=== PATIENT | female | born 2000 ===

== ENCOUNTER 2020-12-28 09:19 | Outpatient (REF) | payer BC, SELFPAY ==
[2020-12-28 11:11] LABS: Hemoglobin 13.4 g/dl (12.0-16.0); Mean Corpuscular HGB Conc 33.5 g/dl (31.0-35.0); Mean Corpuscular Hemoglobin 28.3 pg (27.0-33.0); Mean Corpuscular Volume 84.4 fL (80-98); Mean Platelet Volume 9.4 fL (9.4-12.3); Platelet Count 319 X10*3/uL (160-400); Red Blood Count 4.74 X10*6/uL (4.20-5.50); Red Cell Distribution Width 13.2 % (11.0-16.0); White Blood Count 5.8 X10*3/uL (4.8-10.8)
[2020-12-28 11:51] LABS: HCG Quantitative < 2 mIU/mL; TSH reflex Free T4 0.82 uIU/mL (0.32-4.0)
[2020-12-28 14:25] LABS: Appearance Urine CLOUDY; Color Urine YELLOW; Glucose Urine UA NEG (NEG); Leukocyte Esterase Urine NEG (NEG); Nitrite Urine NEG (NEG); Specific Gravity - Urine 1.015 (1.005-1.025); Urine Blood NEG (NEG); Urine Ketones NEG (NEG); Urine Protein NEG (NEG-TRACE)
[2020-12-28 15:59] LABS: CT PCR NOT DETECTED (Not Detect.); NG PCR NOT DETECTED (Not Detect.)
[2020-12-31 10:34] LABS: Prolactin 7.2
[2020-12-31 10:35] LABS: DHEA Sulfate 136
== END 2020-12-28 09:20 | disposition home or self-care (01) ==
LOC: HO.LAB 09:19
PROVIDERS: Visit Provider Obstetrics & Gynecology
DX: Z01.411 Encounter for gynecological examination (general) (routine) with abnormal findings (principal); Z11.3 Encounter for screening for infections with a predominantly sexual mode of transmission; R10.2 Pelvic and perineal pain; N93.9 Abnormal uterine and vaginal bleeding, unspecified; E28.8 Other ovarian dysfunction
CPT/HCPCS: 36415; 81003; 82627; 83498; 84146; 84402; 84403; 84443; 84702; 85027; 87491; 87591; 88142

== ENCOUNTER 2021-01-14 12:59 | Outpatient (REF) | payer BC, SELFPAY ==
--- NOTE | ~2021-01-14 | US_ITS ---
EXAMINATION: US PELVIC AND TRANSVAGINAL CLINICAL INFORMATION: Medial pain. Endometriosis. LMP 2 weeks ago. COMPARISON: None. TECHNIQUE: Ultrasound of the pelvis is performed using both transabdominal and transvaginal transducers along with Doppler. Transvaginal imaging is performed due to inadequate visualization transabdominally. FINDINGS: Uterus: The uterus is anteverted and measures 7.5 x 2.7 x 4.6 cm. There appears to be smooth indentation of the fundal endometrial canal, which could indicate arcuate uterus. The double wall endometrial thickness is 0.9 mm. The uterus is smooth in contour and has normal myometrial echogenicity. No visible fibroid. Adnexa: Both ovaries are visualized. There is normal color flow to the adnexa. There is no ovarian torsion. Small amount of pelvic free fluid. Probable right-sided corpus luteum measuring up to 2.1 cm. Right ovary measures 3.4 x 2.6 x 2 cm. Right ovarian volume of 9.3 mL. Left ovary measures 4.1 x 1.5 x 1.4 cm. Left ovarian volume of 4.5 mL. US/US pelvic and transvaginal IMPRESSION: 1. Possible arcuate uterus. No myometrial lesion. Unremarkable endometrium. 2. Probable right ovarian corpus luteum measuring 2.1 cm. Unremarkable left ovary. 3. Small amount of pelvic free fluid.
== END 2021-01-14 13:00 | disposition home or self-care (01) ==
LOC: HO.US 12:59
PROVIDERS: Visit Provider Obstetrics & Gynecology
DX: R10.2 Pelvic and perineal pain (principal)
CPT/HCPCS: 76830; 76856

== ENCOUNTER → 2021-01-28 08:59 | Outpatient (BNVA) | payer BC, SELFPAY | PROVIDERS: Visit Provider Obstetrics & Gynecology ==

== ENCOUNTER 2021-06-03 13:27 | Outpatient (REF) | payer BC, SELFPAY ==
--- NOTE | ~2021-06-03 | US_ITS ---
EXAMINATION: US PELVIS CLINICAL INFORMATION: Follow-up ovarian cyst COMPARISON: Previous pelvic ultrasound January 2021 TECHNIQUE: Ultrasound of the pelvis is performed using both transabdominal and transvaginal transducers along with Doppler. Transvaginal imaging is performed due to inadequate visualization transabdominally. FINDINGS: The uterus is anteverted and measures 7.4 x 2.5 x 5.2 cm in dimension. No focal uterine lesion is seen. Endometrial thickness is normal measuring 0.3 cm. The ovaries are normal-appearing. The right ovary measures 3.7 x 1.6 x 1.4 cm. The left ovary measures 3.2 x 1.3 x 1.9 cm. The previously identified 2 cm complex right ovarian cyst on June 2021 exam is no longer seen. There is no fluid in the pelvis. US/US pelvic and transvaginal IMPRESSION: Normal pelvic ultrasound.
== END 2021-06-03 13:28 | disposition home or self-care (01) ==
LOC: HO.US 13:27
PROVIDERS: Visit Provider Obstetrics & Gynecology
DX: N83.299 Other ovarian cyst, unspecified side (principal)
CPT/HCPCS: 76830; 76856

== ENCOUNTER → 2021-06-10 10:38 | Outpatient (BNVA) | payer BC, SELFPAY | PROVIDERS: Visit Provider Obstetrics & Gynecology ==

== ENCOUNTER 2022-02-25 17:04 | Emergency (ER) | payer BC, SELFPAY ==
--- NOTE | ~2022-02-25 | CT_ITS ---
EXAMINATION: CT ABDOMEN AND PELVIS WITH CONTRAST CLINICAL INFORMATION: Pain of right lower quadrant. COMPARISON: Pelvic ultrasound from 06/03/2021 TECHNIQUE: Multidetector volumetric images were obtained from the superior aspect of the liver through the pubic symphysis following administration 85 mL of Omnipaque 350 intravenous contrast. Sagittal and coronal reformatted images were obtained on the technologist's workstation. Oral contrast: No This CT examination was performed using dose optimization techniques as appropriate, variously including the following: *Automated exposure control *Adjustment of mA and/or kV according to patient size (this includes techniques or standardized protocols for targeted exams where dose is matched to indication/reason for exam; i.e. extremities or head) *Use of iterative reconstruction technique DLP: 527 mGy-cm FINDINGS: LUNG BASES: Normal. No pulmonary consolidation or pleural effusion. LIVER: The liver has normal size, shape, and attenuation. No evidence of liver mass. GALLBLADDER AND BILIARY TREE: Gallbladder is without radiopaque stones, wall thickening or pericholecystic fluid. No dilated bile ducts. PANCREAS: Normal. No edema, pancreatic ductal dilatation or mass. SPLEEN: Normal. ADRENAL GLANDS: Normal. KIDNEYS AND URETERS: The kidneys, which have normal size and cortical thickness, enhance symmetrically. No perinephric edema or fluid collection. No urolithiasis or hydroureteronephrosis. BLADDER: Normal. No calculi or wall thickening. BOWEL AND PERITONEUM: Stomach is unremarkable. No dilated loops of bowel. The distal ileum is normal. The appendix is normal; it measures up to 5-6 mm diameter and there is no appendiceal wall thickening or adjacent fat stranding. No pneumoperitoneum. ABDOMINAL WALL: No abdominal wall mass or hernia. Mild edema in the subcutaneous tissues. VASCULATURE: Normal. LYMPH NODES: No pathologic sized lymph nodes in the abdomen or pelvis. No inguinal lymphadenopathy. PELVIC VISCERA: The anteflexed, anteverted uterus is normal. No adnexal mass. Small amount of simple free fluid is present within the pelvic cul-de-sac; this could be secondary to recent rupture of an ovarian follicle. There is a 1.4 cm corpus luteum of the right ovary. MUSCULOSKELETAL: No suspicious bone lesions. Chronic mild endplate irregularity and Schmorl's node of the L3 superior endplate. CT/CT abdomen pelvis w IV con IMPRESSION: * No acute imaging abnormalities in the abdomen or pelvis. No evidence of appendicitis. * Small, physiologic amount of free fluid is present in the pelvis and there is a 1.4 cm corpus luteum of the right ovary.
--- NOTE | ~2022-02-25 | US_ITS ---
EXAMINATION: US PELVIS CLINICAL INFORMATION: Right lower quadrant pain with normal CT scan but elevated white count COMPARISON:, Pelvic ultrasound 06/03/2021 CT abdomen pelvis 02/25/2022 TECHNIQUE: Ultrasound of the pelvis is performed using both transabdominal and transvaginal transducers along with Doppler. Transvaginal imaging is performed due to inadequate visualization transabdominally. FINDINGS: Uterus: The uterus is anteverted and measures 7.1 x 2.3 x 5.5 cm. The double wall endometrial thickness is 0.7 mm. The uterus is smooth in contour and has normal myometrial echogenicity. No visible fibroid. Adnexa: Both ovaries are visualized. There is normal color flow to the adnexa. There is no ovarian torsion. There is a small amount of free pelvic fluid Right ovary measures 2.9 x 2.5 x 2.8 cm for a volume of 10.6 mL and contains a thick-walled 1.8 x 1.8 x 1.7 cm cyst with a small amount of free fluid adjacent. This can be seen on yesterday's CT scan (series 3 image 72). Left ovary measures 2.8 x 1.9 x 2.1 cm for a 5.9 mL and appears normal. US/US pelvic and transvaginal IMPRESSION: No interval change when compared to yesterday's CT scan. Thick-walled right ovarian cyst with small amount of free fluid. No evidence of ovarian torsion.
[2022-02-25 17:56] VITALS: BP 111/78; PULSE 144; RESP 18; TEMP 36.8; O2SAT 100; BMI 29.2
--- NOTE | 2022-02-25 17:58 | ED.ABDPAIN ---
HPI - Abdominal Pain General Chief Complaint: Abdominal Pain <Brandee Hector CNP - Last Filed: 02/25/22 19:05> Stated Complaint: unable to keep food down, trembling, shakes <Brandee Hector CNP - Last Filed: 02/25/22 19:05> Time Seen by Provider: 02/25/22 20:31 <Brandee Hector CNP - Last Filed: 02/25/22 19:05> Source: patient <Miguel A Puri MD - Last Filed: 02/26/22 02:11> Mode of arrival: ambulatory <Miguel A Puri MD - Last Filed: 02/26/22 02:11> Limitations: no limitations <Miguel A Puri MD - Last Filed: 02/26/22 02:11> History of Present Illness HPI narrative: A 21-year-old female with a past medical history of right complex right ovarian cyst presents to the emergency department today with nausea, vomiting, fever and right lower quadrant abdominal pain. The patient states it started earlier today, and has progressively worsened to become moderate to severe at times.. The pain is made worse with any kind of movement, deep breathing, coughing and eating. There have been no relieving factors. <Miguel A Puri MD - Last Filed: 02/26/22 02:11> MD elicited complaint: abdominal pain <Miguel A Puri MD - Last Filed: 02/26/22 02:11> Onset (ago): day(s) (1) <Miguel A Puri MD - Last Filed: 02/26/22 02:11> Pain Consistency: constant <Miguel A Puri MD - Last Filed: 02/26/22 02:11> Location: RLQ <Miguel A Puri MD - Last Filed: 02/26/22 02:11> Severity: severe <Miguel A Puri MD - Last Filed: 02/26/22 02:11> Quality: cramping and aching <Miguel A Puri MD - Last Filed: 02/26/22 02:11> Radiation: none <Miguel A Puri MD - Last Filed: 02/26/22 02:11> Exacerbating factors: eating and movement <Miguel A Puri MD - Last Filed: 02/26/22 02:11> Relieving factors: nothing <Miguel A Puri MD - Last Filed: 02/26/22 02:11> Associated symptoms: nausea, vomiting and fever <Miguel A Puri MD - Last Filed: 02/26/22 02:11> Related Data Home Medications: Home Medications Medication Instructions Recorded Confirmed dextroamphetamine-amphetamine ER 1 cap PO QAM 12/28/20 10 mg 24hr capsule,extend release methylphenidate HCl 10 mg biphasic 10 mg PO QAM 12/28/20 50-50 capsule,extended release topiramate 100 mg capsule 100 mg PO DAILY 12/28/20 sprinkle,extended release 24 hr venlafaxine 37.5 mg 37.5 mg PO DAILY 12/28/20 tablet,extended release 24 hr venlafaxine 75 mg capsule,extended 75 mg PO DAILY 12/28/20 release 24 hr Previous Rx's Medication Instructions Recorded ondansetron 4 mg disintegrating 4 mg PO Q8H PRN nausea and 02/26/22 tablet vomiting #10 tabs oxycodone-acetaminophen 5 mg-325 1 - 2 tab PO Q4H PRN pain, 02/26/22 mg tablet (Endocet) moderate #10 tabs <Brandee Hector CNP - Last Filed: 02/25/22 19:05> Allergies/Adverse Reactions: Allergies Allergy/AdvReac Type Severity Reaction Status Date / Time Penicillins Allergy Unknown hives Verified 02/25/22 17:56 <Brandee Hector ORTHOPEDIC TECH - Last Filed: 02/25/22 19:05> Review of Systems Constitutional: Denies chills, Reports fever(s), Denies headache(s) and Denies weakness <Miguel A Puri MD - Last Filed: 02/26/22 02:11> Eyes: Reports no additional eye complaints <Miguel A Puri MD - Last Filed: 02/26/22 02:11> Reports system reviewed and no additional complaints, except as documented, Denies dizziness and Denies headache(s) <Miguel A Puri MD - Last Filed: 02/26/22 02:11> Cardiovascular: Reports no additional cardiovascular complaints and Denies syncope <Miguel A Puri MD - Last Filed: 02/26/22 02:11> Respiratory: Reports no additional respiratory complaints <Miguel A Puri MD - Last Filed: 02/26/22 02:11> Gastrointestinal: Reports abdominal pain, Reports GI cramping, Reports nausea and Reports vomiting <Miguel A Puri MD - Last Filed: 02/26/22 02:11> Genitourinary: Denies abnormal menses, Denies abnormal vaginal bleeding, Denies hematuria and Denies difficulty voiding <Miguel A Puri MD - Last Filed: 02/26/22 02:11> Musculoskeletal: Reports no additional musculoskeletal complaints <Miguel A Puri MD - Last Filed: 02/26/22 02:11> Skin/Breast: Reports system reviewed and no additional complaints, except as docu <Miguel A Puri MD - Last Filed: 02/26/22 02:11> Denies Abnormal speech present, Denies dizziness, Denies syncope, Denies headache(s) and Denies weakness <Miguel A Puri MD - Last Filed: 02/26/22 02:11> [facility] Past Medical History Attestation statement: The following information was validated with the patient. <Miguel A Puri MD - Last Filed: 02/26/22 02:11> Medical History: Medical History ADD (attention deficit disorder) Anxiety Endometriosis Migraine headache PTSD (post-traumatic stress disorder) <Brandee Hector CNP - Last Filed: 02/25/22 19:05> Surgical History: Surgical History [place] teeth removed <Brandee Hector CNP - Last Filed: 02/25/22 19:05> Family History Family History: Family History Maternal Grandmother Breast CA <Brandee Hector CNP - Last Filed: 02/25/22 19:05> Social History Social History: Social History Alcohol intake: never Patient Tobacco Use Status: Never used Tobacco Smoked in Last 30 Days: No Use of substances other than those prescribed or required for medical reasons: No Advance Directives: No Advance Directives Information Provided: No Patient : No <Brandee Hector CNP - Last Filed: 02/25/22 19:05> Physical Exam ED Vital Signs: Vital Signs - 24 hr 02/25/22 17:56 02/25/22 18:39 02/25/22 21:44 Temperature 98.2 F 99.5 F 99.9 F Pulse Rate 144 H 119 H 114 H Respiratory Rate 18 18 16 Blood Pressure 111/78 112/72 101/45 L Pulse Oximetry 100 100 97 Oxygen Delivery Method Room Air Room Air Room Air 02/25/22 23:37 Temperature 100.3 F Pulse Rate 110 H Respiratory Rate 16 Blood Pressure 91/53 L Pulse Oximetry 98 Oxygen Delivery Method Room Air BMI result Body Mass Index 29.2 <Brandee Hector CNP - Last Filed: 02/25/22 19:05> Vital Signs - 24 hr 02/25/22 17:56 02/25/22 18:39 02/25/22 21:44 Temperature 98.2 F 99.5 F 99.9 F Pulse Rate 144 H 119 H 114 H Respiratory Rate 18 18 16 Blood Pressure 111/78 112/72 101/45 L Pulse Oximetry 100 100 97 Oxygen Delivery Method Room Air Room Air Room Air 02/25/22 23:37 Temperature 100.3 F Pulse Rate 110 H Respiratory Rate 16 Blood Pressure 91/53 L Pulse Oximetry 98 Oxygen Delivery Method Room Air BMI result Body Mass Index 29.2 <Miguel A Puri MD - Last Filed: 02/26/22 02:11> Vital signs stable here in the emergency department except heart rate is elevated at 144 <Miguel A Puri MD - Last Filed: 02/26/22 02:11> Const General: acute distress and ill appearing; No no acute distress <Miguel A Puri MD - Last Filed: 02/26/22 02:11> Nutritional Appearance: average body habitus <Miguel A Puri MD - Last Filed: 02/26/22 02:11> Orientation/consciousness: patient oriented x3 <Miguel A Puri MD - Last Filed: 02/26/22 02:11> HENMT Head: Yes normal to inspection, Yes normocephalic and Yes atraumatic <Miguel A Puri MD - Last Filed: 02/26/22 02:11> Ears: hearing grossly normal bilaterally and external ears normal <Miguel A Puri MD - Last Filed: 02/26/22 02:11> General nose exam: Normal external nose present <Miguel A Puri MD - Last Filed: 02/26/22 02:11> Face and sinus: Yes normal facial exam <Miguel A Puri MD - Last Filed: 02/26/22 02:11> Eyes General: appearance normal, both eyes and all related structures <Miguel A Puri MD - Last Filed: 02/26/22 02:11> Conjunctivae: conjunctivae normal <Miguel A Puri MD - Last Filed: 02/26/22 02:11> Sclerae: sclerae normal <Miguel A Puri MD - Last Filed: 02/26/22 02:11> Pupils: Equal, round and reactive pupils present <Miguel A Puri MD - Last Filed: 02/26/22 02:11> EOM: EOMs intact bilaterally <Miguel A Puri MD - Last Filed: 02/26/22 02:11> Neck Neck: Yes normal visual inspection and Yes full ROM <Miguel A Puri MD - Last Filed: 02/26/22 02:11> Resp Effort & Inspection: normal respiratory effort, normal respiratory pattern, no cough and not labored <Miguel A Puri MD - Last Filed: 02/26/22 02:11> Cardio Rate: tachycardic <Miguel A Puri MD - Last Filed: 02/26/22 02:11> Rhythm: regular rhythm <Miguel A Puri MD - Last Filed: 02/26/22 02:11> GI Inspection: Yes normal to inspection, No Abdominal wall edema and No distended <Miguel A Puri MD - Last Filed: 02/26/22 02:11> Palpation (GI): Tenderness to palpation present (GI) in the RLQ <Miguel A Puri MD - Last Filed: 02/26/22 02:11> Percussion: Yes normal to percussion (Painful with percussion) <Miguel A Puri MD - Last Filed: 02/26/22 02:11> Auscultation: normal bowel sounds <Miguel A Puri MD - Last Filed: 02/26/22 02:11> General: Yes CVA tenderness <Miguel A Puri MD - Last Filed: 02/26/22 02:11> Back/Spine/Pelvis Back: CVA tenderness <Miguel A Puri MD - Last Filed: 02/26/22 02:11> Cervical Spine: normal cervical lordosis and cervical ROM normal <Miguel A Puri MD - Last Filed: 02/26/22 02:11> Skin General skin exam: no ecchymosis, no jaundice and no pallor <Miguel A Puri MD - Last Filed: 02/26/22 02:11> Neuro General: patient oriented x3 and CN's II-XI intact bilaterally <Miguel A Puri MD - Last Filed: 02/26/22 02:11> Cranial nerves: Yes Equal, round and reactive pupils present <Miguel A Puri MD - Last Filed: 02/26/22 02:11> Cognition (Neuro): normal cognition <Miguel A Puri MD - Last Filed: 02/26/22 02:11> Speech: No Abnormal speech present <Miguel A Puri MD - Last Filed: 02/26/22 02:11> Course Course Course Narrative: RME: Patient is a 21-year-old female presents to the emergency department for evaluation of nausea, vomiting, body aches, unable to tolerate PO intake since 10:00. Also c/o diffuse ABD pain, worse to the lower ABD PE: tachycardic 150's, pale, diffuse lower ABD pain upon palpation while sitting in wheelchair, no respiratory distress Plan: Tachycardic, otherwise no additional SIRS criteria no tachypnea, hypoxia, fever at this time, Spoke with charge nurse, patient to be brought directly to a bed. CBC, CMP, lipase, lactic acid, blood cultures, EKG, U/A, urine hcg. <Brandee Hector CNP - Last Filed: 02/25/22 19:05> Medications Administered Generic Name Dose Route Start Last Admin Trade Name Freq PRN Reason Stop Dose Admin Fentanyl 50 mcg 02/25/22 20:58 02/25/22 23:51 Fentanyl Citrate/Pf 100 Mcg/2 Ml Vial IVPUSH 50 mcg Q1H PRN Administration Pain, Severe (Pain Scale 7-10) Protocol Discontinued Medications Generic Name Dose Route Start Last Admin Trade Name Freq PRN Reason Stop Dose Admin Sodium Chloride 1,000 mls @ 1,000 mls/hr 02/25/22 20:36 02/25/22 22:31 Ns IV 02/25/22 21:35 Infused .Q1H ONE Infusion Cefotetan Disodium 2 gm/ 50 mls @ 100 mls/hr 02/25/22 20:36 02/25/22 21:47 Sodium Chloride IV 02/25/22 21:05 Infused ONCE ONE Infusion Sodium Chloride 1,000 mls @ 1,000 mls/hr 02/25/22 22:53 02/26/22 01:30 Ns IV 02/25/22 23:52 Infused .Q1H ONE Infusion Iohexol 100 ml 02/25/22 21:20 02/25/22 21:20 Iohexol 350 Mg/Ml 100 Ml Infus..Btl IV 02/25/22 21:21 85 ml ONCE ONE Administration Morphine Sulfate 4 mg 02/25/22 20:36 02/25/22 21:07 Morphine Sulfate 4 Mg/Ml Cartridge IVPUSH 02/25/22 20:37 Not Given ONCE ONE Protocol Ondansetron HCl 4 mg 02/25/22 20:36 02/25/22 21:07 Ondansetron Hcl 4 Mg/2 Ml Vial IVPUSH 02/25/22 20:37 4 mg ONCE ONE Administration <Brandee Hector, ORTHOPEDIC TECH - Last Filed: 02/25/22 19:05> Medications Administered Generic Name Dose Route Start Last Admin Trade Name Freq PRN Reason Stop Dose Admin Fentanyl 50 mcg 02/25/22 20:58 02/25/22 23:51 Fentanyl Citrate/Pf 100 Mcg/2 Ml Vial IVPUSH 50 mcg Q1H PRN Administration Pain, Severe (Pain Scale 7-10) Protocol Discontinued Medications Generic Name Dose Route Start Last Admin Trade Name Freq PRN Reason Stop Dose Admin Sodium Chloride 1,000 mls @ 1,000 mls/hr 02/25/22 20:36 02/25/22 22:31 Ns IV 02/25/22 21:35 Infused .Q1H ONE Infusion Cefotetan Disodium 2 gm/ 50 mls @ 100 mls/hr 02/25/22 20:36 02/25/22 21:47 Sodium Chloride IV 02/25/22 21:05 Infused ONCE ONE Infusion Sodium Chloride 1,000 mls @ 1,000 mls/hr 02/25/22 22:53 02/26/22 01:30 Ns IV 02/25/22 23:52 Infused .Q1H ONE Infusion Iohexol 100 ml 02/25/22 21:20 02/25/22 21:20 Iohexol 350 Mg/Ml 100 Ml Infus..Btl IV 02/25/22 21:21 85 ml ONCE ONE Administration Morphine Sulfate 4 mg 02/25/22 20:36 02/25/22 21:07 Morphine Sulfate 4 Mg/Ml Cartridge IVPUSH 02/25/22 20:37 Not Given ONCE ONE Protocol Ondansetron HCl 4 mg 02/25/22 20:36 02/25/22 21:07 Ondansetron Hcl 4 Mg/2 Ml Vial IVPUSH 02/25/22 20:37 4 mg ONCE ONE Administration <Miguel A Puri MD - Last Filed: 02/26/22 02:11> MDM - Abdominal Pain MDM Narrative Medical decision making narrative: 21-year-old female with abdominal pain. The patient was evaluated over several hours. She did receive several doses of IV fentanyl for her pain. She underwent a CT scan of the abdomen and ultrasound of the pelvis both of which were unremarkable without any acute findings. Laboratory studies [place] [address] and an initial lactate of 3.2. At this point, there does not appear to be a clear etiology of her abdominal pain. Upon re-evaluation at 2:00 a.m., the patient is sleeping, and is comfortable. Would like to go home at this time. She will be discharged home with follow-up to her primary care doctor on Monday, as well as pain medication and nausea medication. She is instructed to return for any additional complaints. <Miguel A Puri MD - Last Filed: 02/26/22 02:11> Differential Diagnosis Differential diagnosis: Likely abdominal pain <Miguel A Puri MD - Last Filed: 02/26/22 02:11> Lab Data Attestation: I reviewed the patient's lab results. <Miguel A Puri MD - Last Filed: 02/26/22 02:11> Lab results narrative: Of note is a white count of 16 and hematocrit of 49.6. <Miguel A uPri MD - Last Filed: 02/26/22 02:11> Result diagrams: : 02/25/22 19:33 02/25/22 19:33 <Brandee Hector CNP - Last Filed: 02/25/22 19:05> Labs: Lab Results 02/25/22 02/25/22 02/25/22 Range/Units 19:33 19:33 19:33 WBC 16.1 H (4.8-10.8) X10*3/uL RBC 5.79 H (4.20-5.50) X10*6/uL Hgb 16.8 H (12.0-16.0) g/dl Hct 49.6 H (37.0-47.0) % MCV 85.7 (80.0-98.0) fL MCH 29.0 (27.0-33.0) pg MCHC 33.9 (31.0-35.0) g/dl RDW 12.0 (11.0-16.0) % Plt Count 261 (160-400) X10*3/uL MPV 9.6 (9.4-12.3) fL Immature Gran % (Auto) 0.4 (0.0-0.4) % Neut % (Auto) 93.2 H (45-73) % Lymph % (Auto) 2.1 L (20-40) % [place] % (Auto) 4.0 (2-11) % Eos % (Auto) 0.1 (0-4) % Baso % (Auto) 0.2 (0-2) % Lymph # (Auto) 0.3 L (1.2-4.9) X10*3/uL [place] # (Auto) 0.6 (0.1-1.2) X10*3/uL Eos # (Auto) 0.0 (0.0-0.4) X10*3/uL Baso # (Auto) 0.0 (0.0-0.2) X10*3/uL Abs Immat Gran (auto) 0.07 H (0.00-0.03) X10*3/uL Absolute Neuts (auto) 15.0 H (2.0-8.3) x10*3/uL Absolute Nucleated RBC 0.000 (0.0-0.012) X10*3/uL Nucleated RBC % (auto) 0.0 (0.0-0.2) /100WBC Smear Tech's Comments VERIFIED Sodium 139 (135-145) mmol/L Potassium 4.9 (3.3-5.1) mmol/L Chloride 104 (96-108) mmol/L Carbon Dioxide 21 L (22-29) mmol/L Anion Gap 19 (12-20) BUN 13 (9-16) mg/dL Creatinine 0.83 (0.5-1.4) mg/dL Estim Creat Clear Calc 102.9 Estimated GFR > 60 Random Glucose 91 (60-115) mg/dL Lactic Acid 3.2 H* (0.5-2.0) mmol/L Lactic Acid F/U @ 2Hr (0.5-2.0) mmol/L Calcium 9.6 (8.4-10.2) mg/dL Total Bilirubin 1.0 (0.0-1.0) mg/dL AST 17 (5-31) U/L ALT 14 (0-31) U/L Alkaline Phosphatase 73 (39-117) U/L Total Protein 7.4 (6.5-8.0) g/dL Albumin 4.7 (3.5-5.0) g/dL Lipase 11 (8-78) U/L COVID-19 (DORON) (Negative) COVID-19 Clin Com Influenza Type A (FACUNDO) (Negative) Influenza Type B (FACUNDO) (Negative) Influenza A & B Note 02/25/22 02/25/22 02/25/22 Range/Units 19:33 19:33 21:54 WBC (4.8-10.8) X10*3/uL RBC (4.20-5.50) X10*6/uL Hgb (12.0-16.0) g/dl Hct (37.0-47.0) % MCV (80.0-98.0) fL MCH (27.0-33.0) pg MCHC (31.0-35.0) g/dl RDW (11.0-16.0) % Plt Count (160-400) X10*3/uL MPV (9.4-12.3) fL Immature Gran % (Auto) (0.0-0.4) % Neut % (Auto) (45-73) % Lymph % (Auto) (20-40) % [place] % (Auto) (2-11) % Eos % (Auto) (0-4) % Baso % (Auto) (0-2) % Lymph # (Auto) (1.2-4.9) X10*3/uL [place] # (Auto) (0.1-1.2) X10*3/uL Eos # (Auto) (0.0-0.4) X10*3/uL Baso # (Auto) (0.0-0.2) X10*3/uL Abs Immat Gran (auto) (0.00-0.03) X10*3/uL Absolute Neuts (auto) (2.0-8.3) x10*3/uL Absolute Nucleated RBC (0.0-0.012) X10*3/uL Nucleated RBC % (auto) (0.0-0.2) /100WBC Smear Tech's Comments Sodium (135-145) mmol/L Potassium (3.3-5.1) mmol/L Chloride (96-108) mmol/L Carbon Dioxide (22-29) mmol/L Anion Gap (12-20) BUN (9-16) mg/dL Creatinine (0.5-1.4) mg/dL Estim Creat Clear Calc Estimated GFR Random Glucose (60-115) mg/dL Lactic Acid (0.5-2.0) mmol/L Lactic Acid F/U @ 2Hr 2.0 (0.5-2.0) mmol/L Calcium (8.4-10.2) mg/dL Total Bilirubin (0.0-1.0) mg/dL AST (5-31) U/L ALT (0-31) U/L Alkaline Phosphatase (39-117) U/L Total Protein (6.5-8.0) g/dL Albumin (3.5-5.0) g/dL Lipase (8-78) U/L COVID-19 (DORON) Negative (Negative) COVID-19 Clin Com See Note Influenza Type A (FACUNDO) Negative (Negative) Influenza Type B (FACUNDO) Negative (Negative) Influenza A & B Note See Note <Brandee Hector, TRISTAN - Last Filed: 02/25/22 19:05> Lab Results 02/25/22 02/25/22 02/25/22 Range/Units 19:33 19:33 19:33 WBC 16.1 H (4.8-10.8) X10*3/uL RBC 5.79 H (4.20-5.50) X10*6/uL Hgb 16.8 H (12.0-16.0) g/dl Hct 49.6 H (37.0-47.0) % MCV 85.7 (80.0-98.0) fL MCH 29.0 (27.0-33.0) pg MCHC 33.9 (31.0-35.0) g/dl RDW 12.0 (11.0-16.0) % Plt Count 261 (160-400) X10*3/uL MPV 9.6 (9.4-12.3) fL Immature Gran % (Auto) 0.4 (0.0-0.4) % Neut % (Auto) 93.2 H (45-73) % Lymph % (Auto) 2.1 L (20-40) % [place] % (Auto) 4.0 (2-11) % Eos % (Auto) 0.1 (0-4) % Baso % (Auto) 0.2 (0-2) % Lymph # (Auto) 0.3 L (1.2-4.9) X10*3/uL [place] # (Auto) 0.6 (0.1-1.2) X10*3/uL Eos # (Auto) 0.0 (0.0-0.4) X10*3/uL Baso # (Auto) 0.0 (0.0-0.2) X10*3/uL Abs Immat Gran (auto) 0.07 H (0.00-0.03) X10*3/uL Absolute Neuts (auto) 15.0 H (2.0-8.3) x10*3/uL Absolute Nucleated RBC 0.000 (0.0-0.012) X10*3/uL Nucleated RBC % (auto) 0.0 (0.0-0.2) /100WBC Smear Tech's Comments VERIFIED Sodium 139 (135-145) mmol/L Potassium 4.9 (3.3-5.1) mmol/L Chloride 104 (96-108) mmol/L Carbon Dioxide 21 L (22-29) mmol/L Anion Gap 19 (12-20) BUN 13 (9-16) mg/dL Creatinine 0.83 (0.5-1.4) mg/dL Estim Creat Clear Calc 102.9 Estimated GFR > 60 Random Glucose 91 (60-115) mg/dL Lactic Acid 3.2 H* (0.5-2.0) mmol/L Lactic Acid F/U @ 2Hr (0.5-2.0) mmol/L Calcium 9.6 (8.4-10.2) mg/dL Total Bilirubin 1.0 (0.0-1.0) mg/dL AST 17 (5-31) U/L ALT 14 (0-31) U/L Alkaline Phosphatase 73 (39-117) U/L Total Protein 7.4 (6.5-8.0) g/dL Albumin 4.7 (3.5-5.0) g/dL Lipase 11 (8-78) U/L COVID-19 (DORON) (Negative) COVID-19 Clin Com Influenza Type A (FACUNDO) (Negative) Influenza Type B (FACUNDO) (Negative) Influenza A & B Note 02/25/22 02/25/22 02/25/22 Range/Units 19:33 19:33 21:54 WBC (4.8-10.8) X10*3/uL RBC (4.20-5.50) X10*6/uL Hgb (12.0-16.0) g/dl Hct (37.0-47.0) % MCV (80.0-98.0) fL MCH (27.0-33.0) pg MCHC (31.0-35.0) g/dl RDW (11.0-16.0) % Plt Count (160-400) X10*3/uL MPV (9.4-12.3) fL Immature Gran % (Auto) (0.0-0.4) % Neut % (Auto) (45-73) % Lymph % (Auto) (20-40) % [place] % (Auto) (2-11) % Eos % (Auto) (0-4) % Baso % (Auto) (0-2) % Lymph # (Auto) (1.2-4.9) X10*3/uL [place] # (Auto) (0.1-1.2) X10*3/uL Eos # (Auto) (0.0-0.4) X10*3/uL Baso # (Auto) (0.0-0.2) X10*3/uL Abs Immat Gran (auto) (0.00-0.03) X10*3/uL Absolute Neuts (auto) (2.0-8.3) x10*3/uL Absolute Nucleated RBC (0.0-0.012) X10*3/uL Nucleated RBC % (auto) (0.0-0.2) /100WBC Smear Tech's Comments Sodium (135-145) mmol/L Potassium (3.3-5.1) mmol/L Chloride (96-108) mmol/L Carbon Dioxide (22-29) mmol/L Anion Gap (12-20) BUN (9-16) mg/dL Creatinine (0.5-1.4) mg/dL Estim Creat Clear Calc Estimated GFR Random Glucose (60-115) mg/dL Lactic Acid (0.5-2.0) mmol/L Lactic Acid F/U @ 2Hr 2.0 (0.5-2.0) mmol/L Calcium (8.4-10.2) mg/dL Total Bilirubin (0.0-1.0) mg/dL AST (5-31) U/L ALT (0-31) U/L Alkaline Phosphatase (39-117) U/L Total Protein (6.5-8.0) g/dL Albumin (3.5-5.0) g/dL Lipase (8-78) U/L COVID-19 (DORON) Negative (Negative) COVID-19 Clin Com See Note Influenza Type A (FACUNDO) Negative (Negative) Influenza Type B (FACUNDO) Negative (Negative) Influenza A & B Note See Note <Miguel A Puri MD - Last Filed: 02/26/22 02:11> Imaging Data Ultrasound pelvis: Radiologist's impression: FINDINGS: Uterus: The uterus is anteverted and measures 7.1 x 2.3 x 5.5 cm. The double wall endometrial thickness is 0.7 mm.? The uterus is smooth in contour and has normal myometrial echogenicity. ? No visible fibroid. Adnexa: Both ovaries are visualized. There is normal color flow to the adnexa. There is no ovarian torsion.? There is a small amount of free pelvic fluid Right ovary measures 2.9 x 2.5 x 2.8 cm for a volume of 10.6 mL and contains a thick-walled 1.8 x 1.8 x 1.7 cm cyst with a small amount of free fluid adjacent. This can be seen on yesterday's CT scan (series 3 image 72). Left ovary measures 2.8 x 1.9 x 2.1 cm for a 5.9 mL and appears normal <Miguel A Puri MD - Last Filed: 02/26/22 02:11> CT scan - abdomen: Radiologist's impression: IMPRESSION: *? No acute imaging abnormalities in the abdomen or pelvis. No evidence of appendicitis. *? Small, physiologic amount of free fluid is present in the pelvis and there is a 1.4 cm corpus luteum of the right ovary <Miguel A Puri MD - Last Filed: 02/26/22 02:11> Discharge Plan Discharge Clinical Impression: Abdominal pain Qualifiers: Abdominal location: right lower quadrant Qualified Code(s): R10.31 - Right lower quadrant pain <Brandee Hector CNP - Last Filed: 02/25/22 19:05> Patient Disposition: Home, Self-Care <Brandee Hector CNP - Last Filed: 02/25/22 19:05> Instructions: Abdominal Pain (ED) <Brandee Hector CNP - Last Filed: 02/25/22 19:05> Prescriptions: New oxycodone-acetaminophen [Endocet] 5-325 mg tablet 1 - 2 tab PO Q4H PRN (Reason: pain, moderate) Qty: 10 0RF Rx Instructions: Partial Fill upon patient request. ondansetron 4 mg tablet,disintegrating 4 mg PO Q8H PRN (Reason: nausea and vomiting) Qty: 10 0RF No Action methylphenidate HCl 10 mg capsule,ER biphasic 50-50 10 mg PO QAM venlafaxine 75 mg capsule,extended release 24hr 75 mg PO DAILY dextroamphetamine-amphetamine 10 mg capsule,extended release 24hr 1 cap PO QAM venlafaxine 37.5 mg tablet extended release 24hr 37.5 mg PO DAILY topiramate 100 mg cap,sprinkle,ER 24hr dose pack 100 mg PO DAILY <Brandee Hector CNP - Last Filed: 02/25/22 19:05> Stand Alone Forms: Work/School Release <Brandee Hector CNP - Last Filed: 02/25/22 19:05>
--- NOTE | 2022-02-25 18:02 | ECG_ITS ---
Test Reason : ABD PAIN Blood Pressure : / mmHG Vent. Rate : 125 BPM Atrial Rate : 125 BPM P-R Int : 132 ms QRS Dur : 070 ms QT Int : 282 ms P-R-T Axes : 062 042 051 degrees QTc Int : 407 ms Sinus tachycardia RSR' or QR pattern in V1 suggests right ventricular conduction delay Otherwise normal ECG No previous ECGs available Referred By: Brandee Hector Electronically Signed By:LEEANN CHAPA MD
[2022-02-25 18:39] VITALS: BP 112/72; PULSE 119; RESP 18; TEMP 37.5; O2SAT 100
--- NOTE | 2022-02-25 18:57 | PC.NURSE ---
this pct notice pt heart rate was high while taking ekg ,pt was hooked up to director of cardiac rehabilitation .
[2022-02-25 19:43] LABS: Basophils Percent Auto 0.2 % (0-2); Eosinophils Percent Auto 0.1 % (0-4); Hematocrit 49.6 % (37.0-47.0); Hemoglobin 16.8 g/dl (12.0-16.0); Imm Gran Abs Auto 0.07 X10*3/uL (0.00-0.03); Imm Gran Pct Auto 0.4 % (0.0-0.4); Lymphocytes Absolute Auto 0.3 X10*3/uL (1.2-4.9); Lymphocytes Percent Auto 2.1 % (20-40); MANUAL DIFF FLAG SCAN; Mean Corpuscular HGB Conc 33.9 g/dl (31.0-35.0); Mean Corpuscular Volume 85.7 fL (80.0-98.0); Mean Platelet Volume 9.6 fL (9.4-12.3); Monocytes Absolute Auto 0.6 X10*3/uL (0.1-1.2); Neutrophils Percent Auto 93.2 % (45-73); Platelet Count 261 X10*3/uL (160-400); Red Blood Count 5.79 X10*6/uL (4.20-5.50); SCAN SMEAR FLAG 1; White Blood Count 16.1 X10*3/uL (4.8-10.8)
[2022-02-25 19:56] LABS: COVID-19 Test Negative (Negative); IDNOW Serial# 16C4AD1C
[2022-02-25 19:58] LABS: IDNOW Serial# BCCEAD1C; Influenza A Negative (Negative); Influenza B2 Negative (Negative)
[2022-02-25 20:05] LABS: Alanine Aminotransferase 14 U/L (0-31); Albumin Level 4.7 g/dL (3.5-5.0); Alkaline Phosphatase 73 U/L (39-117); Anion Gap 19 (12-20); Aspartate Amino Transferase 17 U/L (5-31); Blood Urea Nitrogen 13 mg/dL (9-16); Calcium 9.6 mg/dL (8.4-10.2); Carbon Dioxide 21 mmol/L (22-29); Chloride 104 mmol/L (96-108); Creatinine Clr Calc Pharmacy 102.9; Estimated Glomerular Filt Rate > 60; Glucose Random 91 mg/dL (60-115); Lipase 11 U/L (8-78); Potassium 4.9 mmol/L (3.3-5.1); Sodium 139 mmol/L (135-145); Total Protein 7.4 g/dL (6.5-8.0)
[2022-02-25 20:07] LABS: Lactic Acid 3.2 mmol/L (0.5-2.0)
[2022-02-25 20:17] LABS: SLIDE REVIEW VERIFIED
[2022-02-25] MEDS: fentaNYL citrate/PF 100 MCG/2 ML VIAL 50 MCG IVPUSH ×2 (21:06→23:51)
[2022-02-25] MEDS: ondansetron HCL 4 MG/2 ML VIAL IVPUSH (21:07)
[2022-02-25] MEDS: cefoTEtan disodium 2 GM in 0.9 % Sodium Chloride 50 ML IV (21:10)
[2022-02-25] MEDS: 0.9 % Sodium Chloride 1,000 ML 1000 ML IV ×2 (21:13→23:51)
[2022-02-25] MEDS: iohexoL 350 MG/ML 100 ML INFUS..BTL IV (21:20)
[2022-02-25 21:38] LABS: Reflex Lactate? Lactic Acid Added
[2022-02-25 21:44] VITALS: BP 101/45; PULSE 114; RESP 16; TEMP 37.7; O2SAT 97
[2022-02-25 23:37] VITALS: BP 91/53; PULSE 110; RESP 16; TEMP 37.9; O2SAT 98
--- NOTE | 2022-02-26 00:06 | PC.NURSE ---
PATIENT SAID SHE NOT ABLE TO GIVE URINE SAMPLE ,RUTH ANN NATH IS AWARE .
[2022-02-26 02:00] VITALS: BP 96/47; PULSE 100; RESP 20; TEMP 37.9; O2SAT 97
== END 2022-02-26 02:32 | disposition home or self-care (01) ==
PROVIDERS: Nurse Practitioner Family; Emergency Provider Emergency Medicine
DX: R10.31 Right lower quadrant pain (principal); R00.0 Tachycardia, unspecified; N83.11 Corpus luteum cyst of right ovary; Z20.822 Contact with and (suspected) exposure to COVID-19
CPT/HCPCS: 74177; 76830; 76856; 80053; 83605; 83690; 85025; 87040; 87502; 87635; 93005; 96361; 96365; 96375; 99285; J2405; J3010; Q9967

== ENCOUNTER 2022-08-12 12:23 | Emergency (ER) | payer BC, SELFPAY ==
[2022-08-12] VITALS (10 sets, daily range): BP systolic 106–149; BP diastolic 58–86; PULSE 77–114; RESP 8–18; TEMP 36.6–36.9; O2SAT 95–100; BMI 30.1
--- NOTE | ~2022-08-12 | XR_ITS ---
EXAMINATION: XR WRIST, RIGHT XR HAND, RIGHT CLINICAL INFORMATION: Fall with deformity COMPARISON: None available. TECHNIQUE: PA, lateral, and oblique views of the right wrist and PA, lateral, and oblique views of the right hand FINDINGS: RIGHT WRIST: There is a comminuted intra-articular angulated fracture of the distal radius with dorsal angulation of the radiocarpal joint. There is also a displaced ulnar styloid fracture present. RIGHT HAND: There is limited evaluation of the hand due to positioning and flexion of the metacarpal phalangeal joints and interphalangeal joints. No acute fracture or dislocation of the right hand is identified. The right hand joint spaces appear maintained. XR/XR hand wrist RT IMPRESSION: Comminuted intra-articular angulated fracture of the distal right radius. Displaced right ulnar styloid fracture.
--- NOTE | ~2022-08-12 | XR_ITS ---
EXAMINATION: XR WRIST, RIGHT CLINICAL INFORMATION: Postreduction. COMPARISON: Right hand and wrist 08/12/2022 at 12:54 PM. TECHNIQUE: PA, lateral, and oblique views of the right wrist. FINDINGS: There is a comminuted distal radial and ulnar styloid process fracture stabilized with right wrist in a hard cast. The fracture fragments are in satisfactory alignment. XR/XR wrist RT 2V IMPRESSION: Status post reduction distal radial and ulnar styloid process fracture with right wrist in a hard cast.
--- NOTE | 2022-08-12 12:41 | ED_ITS ---
HPI - Extremity Injury (Upper) General Chief Complaint: Extremity Injury, Upper <EMELY Lopez - Last Filed: 08/12/22 12:45> Stated Complaint: fell on L arm <EMELY Lopez - Last Filed: 08/12/22 12:45> Time Seen by Provider: 08/12/22 12:49 <EMELY Lopez - Last Filed: 08/12/22 12:45> Source: patient <Denia Bryson NP - Last Filed: 08/12/22 16:10> Mode of arrival: ambulatory <Denia Bryson NP - Last Filed: 08/12/22 16:10> Limitations: no limitations <Denia Bryson NP - Last Filed: 08/12/22 16:10> History of Present Illness HPI narrative: Patient is a 22-year-old [id number] female presenting with right wrist deformity and pain after falling onto outstretched hands while roller- skating prior to arrival. She is able to move all fingers on right hand, does endorse tingling to fingers of right hand. She denies hitting her head during fall. <Denia Bryson NP - Last Filed: 08/12/22 16:10> Related Data Home Medications: Home Medications Medication Instructions Recorded Confirmed dextroamphetamine-amphetamine ER 1 cap PO QAM 12/28/20 10 mg 24hr capsule,extend release methylphenidate HCl 10 mg biphasic 10 mg PO QAM 12/28/20 50-50 capsule,extended release topiramate 100 mg capsule 100 mg PO DAILY 12/28/20 sprinkle,extended release 24 hr venlafaxine 37.5 mg 37.5 mg PO DAILY 12/28/20 tablet,extended release 24 hr venlafaxine 75 mg capsule,extended 75 mg PO DAILY 12/28/20 release 24 hr Previous Rx's Medication Instructions Recorded ondansetron 4 mg disintegrating 4 mg PO Q8H PRN nausea and 02/26/22 tablet vomiting #10 tabs oxycodone-acetaminophen 5 mg-325 1 - 2 tab PO Q4H PRN pain, 02/26/22 mg tablet (Endocet) moderate #10 tabs morphine 15 mg immediate release 15 mg PO Q6H PRN pain 5 days #10 08/12/22 tablet tabs <EMELY Lopez - Last Filed: 08/12/22 12:45> Allergies/Adverse Reactions: Allergies Allergy/AdvReac Type Severity Reaction Status Date / Time Penicillins Allergy Unknown hives Verified 02/25/22 17:56 <EMELY Lopez - Last Filed: 08/12/22 12:45> Review of Systems Review of Systems: As per HPI <Denia Bryson NP - Last Filed: 08/12/22 16:10> Yes all other systems are reviewed and are negative <Denia Bryson NP - Last Filed: 08/12/22 16:10> Constitutional: Constitutional: Reports as per HPI <Denia Bryson NP - Last Filed: 08/12/22 16:10> PMFSH Past Medical History Medical History: Medical History ADD (attention deficit disorder) Anxiety Endometriosis Migraine headache PTSD (post-traumatic stress disorder) <EMELY Lopez - Last Filed: 08/12/22 12:45> Surgical History: Surgical History White Post teeth removed <EMELY Lopez - Last Filed: 08/12/22 12:45> Family History Family History: Family History Maternal Grandmother Breast CA <EMELY Lopez - Last Filed: 08/12/22 12:45> Social History Social History: Social History Alcohol intake: never Patient Tobacco Use Status: Never used Tobacco Advance Directives: No <EMELY Lopez - Last Filed: 08/12/22 12:45> Physical Exam Vital Signs: Vital Signs: Last Vital Signs Temp 98.4 F 08/12/22 15:25 Pulse 79 08/12/22 16:02 Resp 18 08/12/22 16:02 BP 126/69 08/12/22 16:02 Pulse Ox 97 08/12/22 16:02 O2 Del Method Room Air 08/12/22 12:41 BMI result Body Mass Index 30.1 <EMELY Lopez - Last Filed: 08/12/22 12:45> Vital Signs: Last Vital Signs Temp 98.4 F 08/12/22 15:25 Pulse 79 08/12/22 16:02 Resp 18 08/12/22 16:02 BP 126/69 08/12/22 16:02 Pulse Ox 97 08/12/22 16:02 O2 Del Method Room Air 08/12/22 12:41 BMI result Body Mass Index 30.1 <Denia Bryson NP - Last Filed: 08/12/22 16:10> Vital Signs: Last Vital Signs Temp 98.4 F 08/12/22 15:25 Pulse 79 08/12/22 16:02 Resp 18 08/12/22 16:02 BP 126/69 08/12/22 16:02 Pulse Ox 97 08/12/22 16:02 O2 Del Method Room Air 08/12/22 12:41 BMI result Body Mass Index 30.1 <EMELY Licona - Last Filed: 08/12/22 17:56> Const: General: cooperative, healthy appearing and no acute distress <Denia Bryson NP - Last Filed: 08/12/22 16:10> Orientation/consciousness: oriented to person, oriented to place, oriented to time and patient oriented x3 <Denia Bryson NP - Last Filed: 08/12/22 16:10> Limitations: no limitations <Denia Bryson NP - Last Filed: 08/12/22 16:10> HEENT: Head: Yes normocephalic and Yes atraumatic <Denia Bryson NP - Last Filed: 08/12/22 16:10> Ears: external ears normal <ELBERT Cota Last Filed: 08/12/22 16:10> General nose exam: Normal external nose present <ELBERT Cota Las t Filed: 08/12/22 16:10> Face and sinus: Yes face symmetric <ELBERT Cota Last Filed: 08/12/22 16:10> Mouth: oropharynx normal and moist mucous membranes <Denia Bryson NP - Last Filed: 08/12/22 16:10> Throat: Yes uvula midline <Denia Bryson NP - Last Filed: 08/12/22 16:10> Eyes: Pupils: Equal, round and reactive pupils present <Denia Bryson NP - Last Filed: 08/12/22 16:10> Neck: Neck: Yes normal visual inspection and Yes supple <Denia Bryson CT SCAN TECHNOLOGIST - Last Filed: 08/12/22 16:10> Resp: Effort & Inspection: normal respiratory effort and able to speak in complete sentences <Denia Bryson NP - Last Filed: 08/12/22 16:10> Auscultation: clear to auscultation bilaterally <Denia Bryson NP - Last Filed: 08/12/22 16:10> Cardio: Rate: regular rate <Denia Bryson NP - Last Filed: 08/12/22 16:10> Rhythm: regular rhythm <Denia Bryson NP - Last Filed: 08/12/22 16:10> Heart sounds: S1 normal heart sound present and S2 normal heart sound present <Denia Bryson NP - Last Filed: 08/12/22 16:10> GI: Palpation (GI): Soft to palpation and nontender <Denia Bryson NP - Last Filed: 08/12/22 16:10> Auscultation: normoactive bowel sounds <Denia Bryson NP - Last Filed: 08/12/22 16:10> Skin: General skin exam: elasticity normal and turgor normal <Denia Bryson NP - Last Filed: 08/12/22 16:10> Neuro: General: oriented to person, oriented to place, oriented to time, patient oriented x3, moves all extremities, no focal motor deficits and CN's II- XI intact bilaterally <Denia Bryson NP - Last Filed: 08/12/22 16:10> Cranial nerves: Yes Equal, round and reactive pupils present <Denia Bryson NP - Last Filed: 08/12/22 16:10> Cognition (Neuro): normal cognition <Denia Bryson NP - Last Filed: 08/12/22 16:10> Extrem: Right upper extremity: elbow/forearm Details: abrasion elbow , wrist Details: abnormal to inspection Details: obvious deformity, tenderness Location: of the distal radius and of the distal ulna, normal vascular exam and other (abrasion to anterior wrist, no visible puncture wound); no abrasions, no lacerations and no ecchymosis and Extremity exam: right hand Details: normal to inspection, normal capillary refill, neuromotor exam normal and normal ROM of fingers <Denia Bryson NP - Last Filed: 08/12/22 16:10> Left lower extremity: knee Details: abrasion knee <Denia Bryson NP - Last Filed: 08/12/22 16:10> Psych: Mental Status: mental status grossly normal <Denia Bryson NP - Last Filed: 08/12/22 16:10> Affect: normal affect <Denia Bryson NP - Last Filed: 08/12/22 16:10> Thought process: Normal thought process present <Denia Bryson NP - Last Filed: 08/12/22 16:10> Course Course Course Narrative: RME: 22-year-old female with no significant past medical history presenting to the ED complaining of R wrist pain & deformity s/p fall while rollerskating 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 denies head trauma or LOC last drank something around 12P<, ate at 10AM +noted deformity to R wrist. NV intact. +abrasions to palmar & volar aspect XRs ordered Full HPI, ROS and PE to be performed by primary ED provider. 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 denies head trauma or LOC last drank something around 12P<, ate at 10AM +noted deformity to R wrist. NV intact. +abrasions to palmar & volar aspect XRs ordered Full HPI, ROS and PE to be performed by primary ED provider. 16:04 Fracture reduced as per procedure note, succcessful reduction on post- reduction x-rays. Per ortho patient to follow up in the office and will likely require surgery. Patient advised to control pain with Tylenol and ibuprofen and follow up with Ortho aseptic. Return precautions discussed at bedside. <Denia Bryson NP - Last Filed: 08/12/22 16:10> Reevaluation(s) Reevaluation #1: Patient awake and alert, neurovascular status intact when I went to evaluate her splint. Patient complaining of severe pain Dilaudid ordered for pain control. Will discharge patient home with pain meds. Orthopedic follow-up up. Insert chart discharge <EMELY Licona - Last Filed: 08/12/22 17:56> Time: 17:54 <EMELY Licona - Last Filed: 08/12/22 17:56> Medications Administered Discontinued Medications Generic Name Dose Route Start Last Admin Trade Name Freq PRN Reason Stop Dose Admin Lidocaine HCl 20 ml 08/12/22 14:37 08/12/22 15:43 Lidocaine Hcl 1 % 20 Ml Vial SUBCUT 08/12/22 14:38 Not Given ONCE ONE Morphine Sulfate 5 mg 08/12/22 13:40 08/12/22 14:01 Morphine Sulfate 10 Mg/Ml Cartridge IM 08/12/22 13:41 5 mg ONCE ONE Administration Protocol Propofol 50 mg 08/12/22 16:12 08/12/22 15:30 Propofol 200 Mg/20 Ml Vial IVPUSH 08/12/22 16:13 50 mg ONCE ONE Administration Propofol 50 mg 08/12/22 16:13 08/12/22 15:33 Propofol 200 Mg/20 Ml Vial IVPUSH 08/12/22 16:14 50 mg ONCE ONE Administration Propofol 50 mg 08/12/22 16:14 08/12/22 15:34 Propofol 200 Mg/20 Ml Vial IVPUSH 08/12/22 16:15 50 mg ONCE ONE Administration <EMELY Lopez - Last Filed: 08/12/22 12:45> Medications Administered Discontinued Medications Generic Name Dose Route Start Last Admin Trade Name Freq PRN Reason Stop Dose Admin Lidocaine HCl 20 ml 08/12/22 14:37 08/12/22 15:43 Lidocaine Hcl 1 % 20 Ml Vial SUBCUT 08/12/22 14:38 Not Given ONCE ONE Morphine Sulfate 5 mg 08/12/22 13:40 08/12/22 14:01 Morphine Sulfate 10 Mg/Ml Cartridge IM 08/12/22 13:41 5 mg ONCE ONE Administration Protocol Propofol 50 mg 08/12/22 16:12 08/12/22 15:30 Propofol 200 Mg/20 Ml Vial IVPUSH 08/12/22 16:13 50 mg ONCE ONE Administration Propofol 50 mg 08/12/22 16:13 08/12/22 15:33 Propofol 200 Mg/20 Ml Vial IVPUSH 08/12/22 16:14 50 mg ONCE ONE Administration Propofol 50 mg 08/12/22 16:14 08/12/22 15:34 Propofol 200 Mg/20 Ml Vial IVPUSH 08/12/22 16:15 50 mg ONCE ONE Administration <Denia Bryson NP - Last Filed: 08/12/22 16:10> Medications Administered Discontinued Medications Generic Name Dose Route Start Last Admin Trade Name Freq PRN Reason Stop Dose Admin Lidocaine HCl 20 ml 08/12/22 14:37 08/12/22 15:43 Lidocaine Hcl 1 % 20 Ml Vial SUBCUT 08/12/22 14:38 Not Given ONCE ONE Morphine Sulfate 5 mg 08/12/22 13:40 08/12/22 14:01 Morphine Sulfate 10 Mg/Ml Cartridge IM 08/12/22 13:41 5 mg ONCE ONE Administration Protocol Propofol 50 mg 08/12/22 16:12 08/12/22 15:30 Propofol 200 Mg/20 Ml Vial IVPUSH 08/12/22 16:13 50 mg ONCE ONE Administration Propofol 50 mg 08/12/22 16:13 08/12/22 15:33 Propofol 200 Mg/20 Ml Vial IVPUSH 08/12/22 16:14 50 mg ONCE ONE Administration Propofol 50 mg 08/12/22 16:14 08/12/22 15:34 Propofol 200 Mg/20 Ml Vial IVPUSH 08/12/22 16:15 50 mg ONCE ONE Administration <EMELY Licona - Last Filed: 08/12/22 17:56> Medical Decision Making Medical Decision Making MDM Narrative: Patient is a 22-year-old [id number] female presenting with right wrist deformity and pain after falling onto outstretched hands while roller- skating prior to arrival suspicious for fracture/dislocation. Will obtain x- rays, pain control, ortho consult. Please refer to course for remaining clinical decision making. <Denia Bryson NP - Last Filed: 08/12/22 16:10> Differential Diagnosis Differential Diagnoses: The differential diagnosis associated with the presentation includes <Denia Bryson NP - Last Filed: 08/12/22 16:10> As above. <Denia Bryson NP - Last Filed: 08/12/22 16:10> Admission/Observation Consideration of admission/observation: Escalation of care including admission/observation considered <Denia Bryson NP - Last Filed: 08/12/22 16:10> Consult Healthcare Provider Management of the patient was discussed with: Spin Instructor (EMELY Lyles and Dr. Barrios) <Denia Bryson NP - Last Filed: 08/12/22 16:10> Independent Interpretation I performed an independent interpretation of an: Plain X-Ray <Denia Bryson NP - Last Filed: 08/12/22 16:10> Interpretation: I independently reviewed the x-ray and agree with the radiologist's interpretation. <Denia Bryson NP - Last Filed: 08/12/22 16:10> Radiology Impression Discussion of test interpretation with radiology: I have reviewed the radiologist's reading. <Denia Bryson NP - Last Filed: 08/12/22 16:10> Radiologist Impression: FINDINGS: RIGHT WRIST: There is a comminuted intra-articular angulated fracture of the distal radius with dorsal angulation of the radiocarpal joint. There is also a displaced ulnar styloid fracture present.? RIGHT HAND: There is limited evaluation of the hand due to positioning and flexion of the metacarpal phalangeal joints and interphalangeal joints. No acute fracture or dislocation of the right hand is identified. The right hand joint spaces appear maintained.? XR/XR hand wrist RT IMPRESSION: Comminuted intra-articular angulated fracture of the distal right radius. Displaced right ulnar styloid fracture. <ELBERT Cota Last Filed: 08/12/22 16:10> External Record Review External record reviewed: Inpatient record, Office record and Outpatient record <Denia Bryson NP - Last Filed: 08/12/22 16:10> Prescription Management I considered prescription management with: Pain Medication <Denia Bryson NP - Last Filed: 08/12/22 16:10> Procedures Orthopedic Joint Reduction Joint #1: Time Out Performed: Yes <Denia Bryson NP - Last Filed: 08/12/22 16:10> Side: right <Denia Bryson NP - Last Filed: 08/12/22 16:10> Joint Reduction Location: wrist <Denia Bryson NP - Last Filed: 08/12/22 16:10> Analgesia: procedural sedation <Denia Bryson NP - Last Filed: 08/12/22 16:10> Technique used: direct manipulation <Denia Bryson NP - Last Filed: 08/12/22 16:10> Post-reduction neuro exam: intact <Denia Bryson NP - Last Filed: 08/12/22 16:10> Post-reduction vascular: intact <Denia Bryson NP - Last Filed: 08/12/22 16:10> Post Reduction X-Ray Obtained: Yes <ELBERT Cota Last Filed: 08/12/22 16:10> Post Reduction X-Ray Results: reduced <Denia Bryson NP - Last Filed: 08/12/22 16:10> Splint Applied: Yes <Denia Bryson NP - Last Filed: 08/12/22 16:10> Patient Tolerated Procedure: well <Denia Bryson NP - Last Filed: 08/12/22 16:10> Discharge Plan Discharge Clinical Impression: Closed fracture of distal end of right radius <EMELY Lopez - Last Filed: 08/12/22 12:45> Patient Disposition: Still a Patient <EMELY Lopez - Last Filed: 08/12/22 12:45> Instructions: Arm Fracture in Adults (ED), Wrist Fracture in Adults (ED), R.I.C.E. Treatment (ED) <EMELY Lopez - Last Filed: 08/12/22 12:45> Additional Instructions: You were evaluated in the emergency department today for right wrist pain. Your x-ray showed a fracture of your radius which is a bone in your rest. We have placed you in a splint today, avoid getting the splint wet. You will need to follow up with the orthopedic surgeons this week, as your fracture will likely require surgical repair. Please rest, ice, and elevate your wrist to help it heal. We recommend you take 600 mg ibuprofen every 6 hours or Tylenol 650 mg every 6 hours as needed for pain. If needed, you can alternate these medications so they take 1 medication every 3 hours. For instance, at noon take ibuprofen, then at 3:00 p.m. take Tylenol, then at 6:00 p.m. take ibuprofen. Return to the emergency department if you experience worsening pain, numbness, tingling, change of color in your fingers, or any other concerning symptoms. A narcotic has been sent to your pharmacy please take this as prescribed. Do not take more than the prescribed dose. Narcotic medications can cause addiction. Please do not mix them with alcohol. Do not take them while driving or operating machinery. Do not take them with any other narcotics. Do not share them with friends or family. They can cause constipation. Take them only for severe pain. <EMELY Lopez - Last Filed: 08/12/22 12:45> Prescriptions: New morphine 15 mg tablet 15 mg PO Q6H PRN (Reason: pain) 5 Days Qty: 10 0RF Rx Instructions: Partial Fill upon patient request. No Action oxycodone-acetaminophen [Endocet] 5-325 mg tablet 1 - 2 tab PO Q4H PRN (Reason: pain, moderate) Qty: 10 0RF Rx Instructions: Partial Fill upon patient request. ondansetron 4 mg tablet,disintegrating 4 mg PO Q8H PRN (Reason: nausea and vomiting) Qty: 10 0RF methylphenidate HCl 10 mg capsule,ER biphasic 50-50 10 mg PO QAM venlafaxine 75 mg capsule,extended release 24hr 75 mg PO DAILY dextroamphetamine-amphetamine 10 mg capsule,extended release 24hr 1 cap PO QAM venlafaxine 37.5 mg tablet extended release 24hr 37.5 mg PO DAILY topiramate 100 mg cap,sprinkle,ER 24hr dose pack 100 mg PO DAILY <EMELY Lopez - Last Filed: 08/12/22 12:45> Referrals: [facility] [place] [facility] [Provider Group] <EMELY Lopez - Last Filed: 08/12/22 12:45>
[2022-08-12] MEDS: Morphine Sulfate 10 MG/ML CARTRIDGE 5 MG IM (14:01)
[2022-08-12] MEDS: propofoL 200 MG/20 ML VIAL 50 MG IVPUSH ×3 (15:30→15:34)
--- NOTE | 2022-08-12 15:52 | PC.NURSE ---
patient awake and alert post sedation. VS and mentation at baseline. will CTM
[2022-08-12] MEDS: HYDROmorphone HCl 1 MG/ML SYRINGE IVPUSH (17:56)
== END 2022-08-12 18:06 | disposition home or self-care (01) ==
PROVIDERS: Emergency Provider Emergency Medicine
DX: S52.501A Unspecified fracture of the lower end of right radius, initial encounter for closed fracture (principal); S52.611A Displaced fracture of right ulna styloid process, initial encounter for closed fracture; W17.89XA Other fall from one level to another, initial encounter; Y93.51 Activity, roller skating (inline) and skateboarding; Y92.414 Local residential or business street as the place of occurrence of the external cause; Y99.9 Unspecified external cause status
CPT/HCPCS: 25605; 73100; 73110; 73130; 96372; 96374; 96375; 99282; 99285; J1170; J2270

== ENCOUNTER 2022-08-12 21:45 | Emergency (ER) | payer BC, SELFPAY ==
[2022-08-12 21:48] VITALS: BP 146/77; PULSE 86; RESP 18; TEMP 36.4; O2SAT 99; BMI 30.1
--- NOTE | 2022-08-12 22:47 | PC.NURSE ---
pt jimi wrap removed and splint loosened up. pt states her fingers are starting to return feeling and the tingling is resolving. provider made aware. splint is still present and arm is supported and eleveated. pt is in tears. request for pain medication. provider aware. 1 sec cap refill and able to move her fingers.
--- NOTE | 2022-08-12 22:59 | ED_ITS ---
HPI - Extremity Problem General Chief complaint: Extremity Injury, Upper Stated complaint: Numbness in fingers Time Seen by Provider: 08/12/22 22:45 History of Present Illness HPI Narrative: Patient is a 22-year-old female with a history of having right distal ulnar fracture. Patient had it reduced, splinted earlier in the day. Presented today because now she is having increasing numbness to her hand. Patient is from home. No head injury no nausea no vomiting Related Data Home Medications Medication Instructions Recorded Confirmed dextroamphetamine-amphetamine ER 1 cap PO QAM 12/28/20 10 mg 24hr capsule,extend release methylphenidate HCl 10 mg biphasic 10 mg PO QAM 12/28/20 50-50 capsule,extended release topiramate 100 mg capsule 100 mg PO DAILY 12/28/20 sprinkle,extended release 24 hr venlafaxine 37.5 mg 37.5 mg PO DAILY 12/28/20 tablet,extended release 24 hr venlafaxine 75 mg capsule,extended 75 mg PO DAILY 12/28/20 release 24 hr Previous Rx's Medication Instructions Recorded ondansetron 4 mg disintegrating 4 mg PO Q8H PRN nausea and 02/26/22 tablet vomiting #10 tabs oxycodone-acetaminophen 5 mg-325 1 - 2 tab PO Q4H PRN pain, 02/26/22 mg tablet (Endocet) moderate #10 tabs morphine 15 mg immediate release 15 mg PO Q6H PRN pain 5 days #10 08/12/22 tablet tabs Allergies Allergy/AdvReac Type Severity Reaction Status Date / Time Penicillins Allergy Unknown hives Verified 02/25/22 17:56 NSAIDS (Non-Steroidal Allergy Hives Verified 08/12/22 21:51 Anti-Inflamma Review of Systems Review of Systems: Positive numbness to the right hand Yes all other systems are reviewed and are negative PMFSH Past Medical History Attestation statement: The following information was validated with the patient. Medical History ADD (attention deficit disorder) Anxiety Endometriosis Migraine headache PTSD (post-traumatic stress disorder) Surgical History [place] teeth removed Family History Family History Maternal Grandmother Breast CA Social History Social History Alcohol intake: never Patient Tobacco Use Status: Never used Tobacco Advance Directives: No Advance Directives Information Provided: Yes Physical Exam Vital Signs: Vital Signs: Last Vital Signs Temp 97.5 F 08/12/22 21:48 Pulse 86 08/12/22 21:48 Resp 18 08/12/22 21:48 BP 146/77 H 08/12/22 21:48 Pulse Ox 99 08/12/22 21:48 O2 Del Method Room Air 08/12/22 21:48 BMI result Body Mass Index 30.1 Appearance: Alert. Oriented X3. No acute distress. Eyes: Pupils equal, round and reactive to light. ENT: Pharynx normal. Neck: Normal inspection. Neck supple. No lymph nodes noted. No crepitus CVS: Normal heart rate and rhythm. Pulses normal. Normal S1 and S2 Respiratory: No respiratory distress. Breath sounds normal. No Wheezing. No rales Abdomen: Soft and nontender. No rigidity. No distention. good BS x4 Skin: Skin warm and dry. Normal skin color. Normal skin turgor. Extremities: No lower extremity edema. Examination of the right upper extremity- Splint in place. Distal pulses intact. Capillary refill less than 2 seconds sensation over the fingertips intact Neuro: Oriented X 3. No motor deficit. No sensory deficit. Moving all extermities. No slurred speech Medical Decision Making Medical Decision Making [facility] Narrative: Patient only has a splint in place. No cast. The Sergey wrap was undone. The splint was made a little bit looser. Review appt in Sergey bandage. Patient's sensation improved dramatically. There is no more pain. No numbness. Sensation in the distal fingers intact. Capillary refill less than 2 seconds. Symptoms completely resolved. Will discharge patient home. Symptoms most likely secondary to some swelling that occurred after patient left the emergency department. She is in stable condition. Will give pain medication. Additional history was obtained through patient's family. Patient's old x-ray was reviewed. Differential Diagnosis Differential Diagnoses: The differential diagnosis associated with the presentation includes Fracture of the ulnar, compartment syndrome, Lab Data [facility] Lab Attestation statement: I reviewed the patient's lab results. Independent Interpretation I performed an independent interpretation of an: Plain X-Ray Interpretation: Distal ulnar fracture. Reduced. Discharge Plan Discharge Clinical Impression: Fracture of wrist Patient Disposition: Home, Self-Care Instructions: Wrist Fracture in Adults (ED), Splint Care (ED) Prescriptions: No Action oxycodone-acetaminophen [Endocet] 5-325 mg tablet 1 - 2 tab PO Q4H PRN (Reason: pain, moderate) Qty: 10 0RF Rx Instructions: Partial Fill upon patient request. ondansetron 4 mg tablet,disintegrating 4 mg PO Q8H PRN (Reason: nausea and vomiting) Qty: 10 0RF morphine 15 mg tablet 15 mg PO Q6H PRN (Reason: pain) 5 Days Qty: 10 0RF Rx Instructions: Partial Fill upon patient request. methylphenidate HCl 10 mg capsule,ER biphasic 50-50 10 mg PO QAM venlafaxine 75 mg capsule,extended release 24hr 75 mg PO DAILY dextroamphetamine-amphetamine 10 mg capsule,extended release 24hr 1 cap PO QAM venlafaxine 37.5 mg tablet extended release 24hr 37.5 mg PO DAILY topiramate 100 mg cap,sprinkle,ER 24hr dose pack 100 mg PO DAILY Referrals: Vargas Barrios MD [Physician] - 08/15/22
[2022-08-12 23:02] VITALS: BP 124/75; PULSE 79; RESP 18; O2SAT 94
[2022-08-12] MEDS: HYDROcodone Bit/Acetam 5/325 TABLET 1 TAB PO (23:19)
--- NOTE | 2022-08-12 23:25 | PC.NURSE ---
Pt reports 10/10 burning pain to right arm. Dr. Chamorro at bedside applied and loosing up splint. Pt able to wiggle all digits. After 10 mins Pt stated the feeling of burning is back, Dr. Chamorro notified. Medicated per JUN.
[2022-08-13] MEDS: HYDROcodone Bit/Acetam 5/325 TABLET 1 TAB PO (00:12)
== END 2022-08-13 01:11 | disposition home or self-care (01) ==
PROVIDERS: Emergency Provider Emergency Medicine Emergency Medical Services
DX: R20.0 Anesthesia of skin (principal); S52.611D Displaced fracture of right ulna styloid process, subsequent encounter for closed fracture with routine healing; W18.39XD Other fall on same level, subsequent encounter
CPT/HCPCS: 99283; 99284

== ENCOUNTER 2022-08-17 09:54 | Outpatient (REF) | payer BC, SELFPAY ==
--- NOTE | ~2022-08-17 | FL_ITS ---
EXAMINATION: XR FLUOROSCOPY CLINICAL INFORMATION: Wrist pain. COMPARISON: None available. TECHNIQUE: Digital single image. FINDINGS: A single digital image obtained reveals a transverse fracture distal radial metadiaphysis. Also visualized is a ulnar styloid process fracture with right forearm in a hard cast. The exam is limited. FLUOROSCOPY TIME: 7.3 seconds. DOSE AREA PRODUCT: 5442 uGy-m2 (microgray-meter squared) IMAGES: 2 FL/FL fluoroscopy <1hr IMPRESSION: There is a distal radial metadiaphyseal fracture in alignment, with the right wrist and forearm in a cast.
--- NOTE | ~2022-08-17 | XR_ITS ---
EXAMINATION: XR ELBOW, RIGHT CLINICAL INFORMATION: Pain COMPARISON: Right wrist 08/12/2022 TECHNIQUE: AP, lateral, and oblique views of the right elbow. FINDINGS: The right forearm is in a cast. The views obtained are suboptimal with no gross fracture or joint abnormality seen. XR/XR elbow RT min 3V IMPRESSION: Unremarkable right elbow exam.
== END 2022-08-17 09:55 | disposition home or self-care (01) ==
LOC: HO.HOSX 09:54
PROVIDERS: Visit Provider Orthopaedic Surgery
DX: S52.501A Unspecified fracture of the lower end of right radius, initial encounter for closed fracture (principal); G56.01 Carpal tunnel syndrome, right upper limb
CPT/HCPCS: 73080; 76000

== ENCOUNTER 2022-08-17 11:54 | Outpatient (REF) | payer BC, SELFPAY ==
--- NOTE | ~2022-08-17 | CT_ITS ---
EXAMINATION: CT WRIST WITHOUT CONTRAST, RIGHT CLINICAL INFORMATION: Unspecified fracture of the lower end of right radius. Please evaluate carpal bones for any malalignment. Known complex distal radius and ulnar styloid fracture - S52.501A COMPARISON: Radiograph dated 08/12/2022 TECHNIQUE: Multidetector volumetric imaging was obtained through the right wrist without contrast. Multiplanar reformatted images in coronal and sagittal orientations were submitted. This CT examination was performed using dose optimization techniques as appropriate, variously including the following: *Automated exposure control *Adjustment of mA and/or kV according to patient size (this includes techniques or standardized protocols for targeted exams where dose is matched to indication/reason for exam; i.e. extremities or head) *Use of iterative reconstruction technique DLP: 104 mGy-cm FINDINGS: Again seen is a comminuted intra-articular fracture of the distal radius with slight apex volar angulation at the fracture site and impaction of the more dorsal fragments. At the articular surface, there is a dominant styloid/volar articular surface fragment which is dorsally tilted. There is comminution of the more dorsal and ulnar aspects of the articular surface with an articular gap measuring up to 4 cm between the dominant radial/volar and dorsal/ulnar fragments. Articular cortical depression and step-off measure up to 3 mm. Additional comminution is noted along the dorsal cortex near Deanna's tubercle. There is flattening of the radial inclination. An ulnar styloid fracture is displaced distally by 4 mm. No additional fractures are identified. The carpal bones appear intact and appropriately aligned. The metacarpals also appear intact and appropriately situated at the CMC and MCP joints. Imaged portions of the phalanges are unremarkable. Soft tissues are swollen at the wrist circumferentially with subcutaneous edema. Small radiocarpal joint effusion. Musculature is unremarkable. CT/CT wrist RT wo IV con IMPRESSION: 1. Comminuted intra-articular fracture of the distal radius with slight apex volar angulation at the fracture site. 2. Mildly displaced ulnar styloid fracture.
== END 2022-08-17 11:55 | disposition home or self-care (01) ==
LOC: HO.CT 11:54
PROVIDERS: Visit Provider Orthopaedic Surgery
DX: S52.501A Unspecified fracture of the lower end of right radius, initial encounter for closed fracture (principal)
CPT/HCPCS: 73200

== ENCOUNTER 2022-08-22 05:51 | Day surgery (SDC) | payer BC, SELFPAY ==
--- NOTE | 2022-08-19 11:41 | HO.ANESPROP2 ---
Documented by User: Farnaz Lim NP 08/19/22 11:44 HPI - Anesthesia Eval Consult details Narrative: 22yo F for Right Radius Distal Fracture ORIF, Right Carpal Tunnel Release PMFSH Active Problems Active Problems: All Active Problems (Updated 08/17/22 @ 11:44 by Linda Parrish MD) Acute carpal tunnel syndrome of right wrist (Acute) Right wrist pain (Acute) Distal radius fracture, right (Acute) Complex cyst of right ovary (Acute) LGSIL of cervix of undetermined significance (Acute) Well woman exam (Acute) Pelvic pain (Acute) Hyperandrogenism (Acute) Abnormal uterine bleeding (AUB) (Acute) Past Medical History Medical History ADD (attention deficit disorder) Anxiety Asthma Endometriosis Migraine headache PONV (postoperative nausea and vomiting) PTSD (post-traumatic stress disorder) Family History Family History Maternal Grandmother Breast CA Surgical History Surgical History History of plastic surgery [place] teeth removed Social History Social History Alcohol intake: never Patient Tobacco Use Status: Never used Tobacco Use of substances other than those prescribed or required for medical reasons: Yes Substance Use Frequency: Weekly Are you DNR?: No Advance Directives: No Advance Directives Information Provided: Yes Current occupational status: employed 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 Allergies Allergy/AdvReac Type Severity Reaction Status Date / Time NSAIDS (Non-Steroidal Allergy Severe HIVES, Verified 08/22/22 06:16 Anti-Inflamma THROAT SWELLING Penicillins Allergy Severe HIVES, Verified 08/22/22 06:16 THROAT SWELLING Home Medications Medication Instructions Recorded Confirmed Last Taken Type dextroamphetamine-amphetamine ER 1 cap PO QAM 12/28/20 08/22/22 Unknown History 10 mg 24hr capsule,extend release methylphenidate HCl 10 mg biphasic 10 mg PO QAM 12/28/20 08/22/22 Unknown History 50-50 capsule,extended release topiramate 100 mg capsule 100 mg PO DAILY 12/28/20 08/22/22 Unknown History sprinkle,extended release 24 hr lifitegrast 5 % eye drops in a 1 drp ophthalmic (eye) BID 08/17/22 08/22/22 Unknown History dropperette (Xiidra) bupropion HCl 75 mg tablet 75 mg PO BID 08/22/22 08/22/22 Unknown History spironolactone 50 mg tablet 50 mg PO BID 08/22/22 08/22/22 Unknown History Exam Exam Date and Time: August 19, 2022 1141 Pertinent Lab Results Pertinent Lab Results: Laboratory Tests 02/25/22 02/25/22 19:33 19:33 WBC 16.1 H Hgb 16.8 H Hct 49.6 H Plt Count 261 Sodium 139 Potassium 4.9 Chloride 104 Carbon Dioxide 21 L BUN 13 Creatinine 0.83 Narrative Narrative: EKG 02/2022 Vent. Rate : 125 BPM ? ? Atrial Rate : 125 BPM ?? P-R Int : 132 ms? QRS Dur : 070 ms ? ? QT Int : 282 ms ? ? ? P-R-T Axes : 062 042 051 degrees ?? QTc Int : 407 ms ? Sinus tachycardia RSR' or QR pattern in V1 suggests right ventricular conduction delay Otherwise normal ECG No previous ECGs available Assessment and Plan Assessment Anesthesia Assessment: Chart Reviewed Documented by User: Renetta Seymour DO 08/22/22 07:24 HPI - Anesthesia Eval Consult details Narrative: 22yo F for Right Radius Distal Fracture ORIF, Right Carpal Tunnel Release. Hx of PONV. PMFSH Past Medical History Medical History ADD (attention deficit disorder) Anxiety Asthma Endometriosis Migraine headache PONV (postoperative nausea and vomiting) PTSD (post-traumatic stress disorder) Family History Family History Maternal Grandmother Breast CA Family history of problems with anesthesia: No Surgical History Surgical History History of plastic surgery [place] teeth removed History of Problems with Anesthesia: Yes (PONV) Social History Social History Alcohol intake: never Patient Tobacco Use Status: Never used Tobacco Use of substances other than those prescribed or required for medical reasons: Yes Substance Use Frequency: Weekly Are you DNR?: No Advance Directives: No Advance Directives Information Provided: Yes Current occupational status: employed 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 Allergies Allergy/AdvReac Type Severity Reaction Status Date / Time NSAIDS (Non-Steroidal Allergy Severe HIVES, Verified 08/22/22 06:16 Anti-Inflamma THROAT SWELLING Penicillins Allergy Severe HIVES, Verified 08/22/22 06:16 THROAT SWELLING Home Medications Medication Instructions Recorded Confirmed Last Taken Type dextroamphetamine-amphetamine ER 1 cap PO QAM 12/28/20 08/22/22 Unknown History 10 mg 24hr capsule,extend release methylphenidate HCl 10 mg biphasic 10 mg PO QAM 12/28/20 08/22/22 Unknown History 50-50 capsule,extended release topiramate 100 mg capsule 100 mg PO DAILY 12/28/20 08/22/22 Unknown History sprinkle,extended release 24 hr lifitegrast 5 % eye drops in a 1 drp ophthalmic (eye) BID 08/17/22 08/22/22 Unknown History dropperette (Xiidra) bupropion HCl 75 mg tablet 75 mg PO BID 08/22/22 08/22/22 Unknown History spironolactone 50 mg tablet 50 mg PO BID 08/22/22 08/22/22 Unknown History Exam Exam Date and Time: August 22, 2022 0720 Height,Weight and Vital Signs: Height 5 ft 3 in Weight 77.111 kg Vital Signs Temperature 97.9 F 08/22/22 06:21 Pulse Rate 111 H 08/22/22 06:21 Respiratory Rate 16 08/22/22 06:21 Blood Pressure 133/85 08/22/22 06:21 Pulse Oximetry 99 08/22/22 06:21 Oxygen Delivery Method Room Air 08/22/22 06:21 Temperature 97.9 F 08/22/22 06:21 Pulse Rate 111 H 08/22/22 06:21 Respiratory Rate 16 08/22/22 06:21 Blood Pressure 133/85 08/22/22 06:21 Pulse Oximetry 99 08/22/22 06:21 Oxygen Delivery Method Room Air 08/22/22 06:21 Airway Mallampati Class: I TM Dist: >3cm Neck ROM: Full Loose/Missing/Broken Teeth: No Heart: S1S2 Lungs: CTAB Assessment and Plan Assessment Anesthesia Assessment: Anesthesia Plan Discussed and Chart Reviewed Final Anesthetic Review Family History of Problems with Anesthesia: No History of Problems with Anesthesia: Yes (PONV) NPO: Yes ASA Class: II Final Preanesthetic Review: No Changes in Pt Med Stat, Meds/Allgs Chart Reviewed, Consent Obtained/Reviewed and Anes Risks/Benef Reviewed Patient Risk: Low Procedure Risk: Low Anesthetic Plan Anesthetic Plan: GA and Agree w/ Assess. and Plan Disposition: Standard PACU
[2022-08-22] VITALS (8 sets, daily range): BP systolic 132–149; BP diastolic 74–88; PULSE 89–111; RESP 16–20; TEMP 36.6–37.4; O2SAT 95–99; BMI 30.1
--- NOTE | ~2022-08-22 | FL_ITS ---
EXAMINATION: XR FLUOROSCOPY WITH IMAGES CLINICAL INFORMATION: Open reduction distal radial fracture. COMPARISON: Radiographs right wrist 08/17/2022, 08/12/2022 TECHNIQUE: Fluoroscopy Supervised By: Dr. Linda Parrish. Fluoroscopy Time: 44 seconds. Cumulative Dose: 1.2821 mGy. DAP: 0.0775 Gycm2. Images: 12. FINDINGS: Distal radial fracture is reduced with volar side plate and screws. Hardware is intact. Fracture fragments are in near-anatomic alignment. Ulnar variance is neutral. There is fracture base ulnar styloid again seen. FL/FL guidance in OR IMPRESSION: Status post open reduction internal fixation distal radial fracture.
[2022-08-22 06:17] LABS: UPreg QC Valid YES; Urine Pregnancy NEGATIVE (NEGATIVE)
[2022-08-22] MEDS: Lactated Ringers 1,000 ML 100 ML IVCONT (06:37)
--- NOTE | 2022-08-22 08:01 | P.OP_ITS ---
Operative Note Operative Note Date of Service: 08/22/22 Narrative: Operative Note Narrative: Preop diagnosis: 1. Right comminuted intra-articular Distal radius fracture 2. Right acute carpal tunnel syndrome Postop diagnosis: Same Procedure: 1. Right Distal radius fracture open reduction internal fixation, 3 part intra- articular 2. Right carpal tunnel release Surgeon: Linda Parrish MD Anesthesia: General anesthesia plus regional block Findings: Comminuted intra-articular distal radius fracture Implants: A 3 hole standard Accu Med volar locking plate, with 5x 2.3 mm locking pegs/screws, and 3 3.5 mm cortical screws Tourniquet time: 83 minutes EBL: 5.0 ml Specimen: None Drains: None Complications: None Disposition: Brought to the recovery room in stable condition Plan: Follow-up in 10-14 days for wound check, suture removal and postop radiographs The patient will be placed in either a short-arm cast Encouraged no lifting of anything heavier than a cell phone. Please encourage active and passive range of motion of the digits. Follow-up at 4-5 weeks postop for repeat radiographs. Indications: The patient is a 22 year old woman with a right comminuted intra- articular distal radius fracture and acute carpal tunnel syndrome . The risks and benefits of operative treatment, including but not limited to risk of damage to blood vessels, nerves, tendons, infection, recurrence, persistent pain or numbness, incomplete resolution of preoperative symptoms, or need for further surgery were discussed with the patient and they wished to proceed with surgery. Procedure: Once consent was obtained patient was brought back to the operating suite and placed in the operating table in a supine position. A regional block was performed by the anesthesia team. Perioperative antibiotics and anesthesia was administered by the anesthesia team. A tourniquet was applied to the proximal aspect of the right upper extremity and the limb was prepped and draped in a standard surgical fashion. The limb was elevated exsanguinated with Chantale rch bandage and the tourniquet inflated to 250 mm of mercury for a total tourniquet time of 83 minutes. Once assured that we had a good block, a 2.0 cm longitudinal incision was made centered over the right carpal tunnel. The incision was made through the skin to the subcutaneous tissues using a #15 blade. Dissection was made down to the level of the transverse carpal ligament with care being taken to protect the palmar cutaneous nerve. Once the transverse carpal ligament was clearly visualized, a longitudinal incision was made in the transverse carpal ligament 1st using a #15 blade, then using tenotomy scissors under direct visualization. Care was taken to look for and protect the motor branch of the median nerve when seen in this area. Once satisfied with our carpal tunnel release the wound was irrigated with normal saline. The FluoroScan was used throughout the case to assess our reduction, and facilitate implant placement. A gentle closed reduction was 1st performed on th e patient's distal radius fracture. Was assessed radiographically before proceeding with the reduction internal fixation. I then made an 8 cm longitudinal incision over the distal aspect of the flexor carpi radialis tendon. The incision was made through the skin to the subcutaneous tissue using a 15. Blade. Then carefully dissected down to flexor carpi radialis tendon she tenotomy scissors. The FCR tendon sheath was then incised longitudinally using tenotomy scissors under direct visualization. The FCR tendon was then retracted ulnarly. I then made a longitudinal incision in the volar forearm fascia through the floor of FCR tendon sheath using tenotomy scissors under direct visualization. I identified the interval between the radial artery and the flexor tendons. This interval was developed further with my index finger, releasing some of the muscular fibers of the flexor pollicis longus. A dull weatlander retractor was then placed. I then created an ulnarly based flap of the pronator quadratus by releasing the radial and distal edges using a 15. Blade. A Chapa elevator was used to elevate the pronator quadratus from the volar surface of the distal radius. This then revealed to us our distal radius fracture. I then performed a tenotomy of the brachioradialis releasing it from its insertion in the radial styloid under direct visualization using a 15. Blade and tenotomy scissors. This was done to facilitate our reduction. An open reduction was then performed on our distal radius fracture. I then placed a short standard 3 hole Accu Med volar locking plate on the volar surface of the distal radius. I placed a single K-wire through the distal aspect of the plate and into the distal radius. This was assessed using fluoroscopic images. I was satisfied with the placement of our plate. I then placed 5x 2.3 mm locking screws/pegs in the distal aspect of the plate and distal radius by 1st drilling bicortically with a 1.8 mm drill bit, measuring with a depth gauge, and placing the appropriate length locking screws/pegs. I had initially placed 1 nonlocking screw in a similar manner to facilitate our reduction of this highly comminuted fracture. The placement of our plate and screws was then assessed again using fluoroscopic images. The once satisfied with the placement of the volar locking plate and screws on the distal aspect of the distal radius, the plate was then reduced to the shaft of the radius. I then placed 3 3.5 mm cortical screws to the proximal aspect of the plate and into the shaft of the radius. This was done by 1st drilling bicortically with a 2.8 mm drill bit, measuring with a depth gauge, and placing the appropriate length screw. I then removed the 2.3 mm nonlocking screw and replaced it with the appropriate drill length locking peg for a total number of distal locking screws/pegs of 5. Final radiographs were then obtained. We appeared to have satisfactory alignment of the distal articular surface on all views. The DRUJ was assessed and found to be stable on exam. I was satisfied with our reduction and placement of all implants. At this point the wound was irrigated with normal saline. The pronator qu adratus was reduced back over the volar locking plate using some 3-0 Vicryl suture material. The tourniquet was then deflated and hemostasis was obtained with a brief period of local pressure and bipolar monopolar electrocautery. The subcutaneous layer was then reapproximated using some 4-0 Vicryl suture, and the skin edges were reapproximated using some 5 0 Prolene and 5 0 nylon suture. The wounds were then infiltrated with some 0.5% plain ropivacaine for postop pain control. A sterile dressing and a short dorsal splint allowing for active flexion and extension of the digits was applied. The patient appears to have tolerated the procedure well and with no complications. All digits were well vascularized conclusion of the case.
--- NOTE | 2022-08-22 08:01 | MHC.SHP ---
Pre-Procedural Eval Section A Date of Service: 08/22/22 The patient is an INPATIENT: No Changes since office visit: No Cold of Flu in the past 2 weeks, No New Medical Problems, No Changes in Medication and No Patient answered all questions The History & Physical has been completed within 30 days and I have reviewed it.: Yes Section B Chief Complaint: fx of the lower end of right rad,carpal tunnel Allergies: Allergies Allergy/AdvReac Type Severity Reaction Status Date / Time NSAIDS (Non-Steroidal Allergy Severe HIVES, Verified 08/22/22 06:16 Anti-Inflamma THROAT SWELLING Penicillins Allergy Severe HIVES, Verified 08/22/22 06:16 THROAT SWELLING Plan I have reviewed the history and physical and performed a pertinent physical examination on my patient. No changes have occurred unless specified. Time Spent With Patient Time: Total time managing care of this patient today ____ minutes.
== END 2022-08-22 11:59 | disposition home or self-care (01) ==
PROVIDERS: Nurse Practitioner; Visit Provider Orthopaedic Surgery
PROC: (CPT 25609; principal; 2022-08-22 07:30)
PROC: (CPT 64721; 2022-08-22 07:30)
DX: S52.571A Other intraarticular fracture of lower end of right radius, initial encounter for closed fracture (principal); G56.01 Carpal tunnel syndrome, right upper limb; M25.531 Pain in right wrist; R20.0 Anesthesia of skin; W17.81XA Fall down embankment (hill), initial encounter; Y93.51 Activity, roller skating (inline) and skateboarding; Y92.89 Other specified places as the place of occurrence of the external cause; Y99.8 Other external cause status; F90.9 Attention-deficit hyperactivity disorder, unspecified type; F41.1 Generalized anxiety disorder; F43.10 Post-traumatic stress disorder, unspecified; G43.909 Migraine, unspecified, not intractable, without status migrainosus; Z79.899 Other long term (current) drug therapy; Z88.0 Allergy status to penicillin; Z88.8 Allergy status to other drugs, medicaments and biological substances
CPT/HCPCS: 25609; 64721; 81025; C1713; C1769; J0131; J0690; J1100; J1200; J2250; J2405; J2795; J3010

== ENCOUNTER 2022-09-05 07:12 | Outpatient (REF) | payer BC, SELFPAY ==
--- NOTE | ~2022-09-05 | XR_ITS ---
EXAMINATION: XR WRIST, RIGHT CLINICAL INFORMATION: Right wrist pain. COMPARISON: August 12, 2022. TECHNIQUE: PA, lateral, and oblique views of the right wrist. XR/XR wrist RT min 3V FINDINGS/IMPRESSION: The patient is status post ORIF of a comminuted fracture of the distal right radial metaphysis. There is a metallic fixation plate and screws. There is no evidence of hardware fracture or loosening. One of the fracture planes extends to the radiocarpal articulation. The posterior fragment may project approximately 0.2 cm peripheral to the anterior fragment on frontal view. No bony callus formation is seen. There is an avulsion fracture of the right ulnar styloid, which also does not demonstrate bony callus formation. The images are available for orthopedic review on PACS.
== END 2022-09-05 07:13 | disposition home or self-care (01) ==
LOC: HO.HOSX 07:12
PROVIDERS: Visit Provider Physician Assistant
DX: S52.501D Unspecified fracture of the lower end of right radius, subsequent encounter for closed fracture with routine healing (principal); M25.531 Pain in right wrist; S52.501A Unspecified fracture of the lower end of right radius, initial encounter for closed fracture; G56.01 Carpal tunnel syndrome, right upper limb; X58.XXXD Exposure to other specified factors, subsequent encounter
CPT/HCPCS: 29075; 29085; 73110

== ENCOUNTER 2022-10-11 11:31 | Outpatient (REF) | payer BC, SELFPAY ==
--- NOTE | ~2022-10-11 | XR_ITS ---
EXAMINATION: XR WRIST, RIGHT CLINICAL INFORMATION: Pain in right wrist COMPARISON: 09/05/2022 TECHNIQUE: PA, lateral, and oblique views of the right wrist. FINDINGS: Status post ORIF with plantar plate and screw fixation of the distal radius fracture. There is stable osseous alignment without evidence of hardware complication. Fracture lines again noted extending into the radial ulnar joint. Ulnar styloid fracture. XR/XR wrist RT min 3V IMPRESSION: Status post ORIF of distal radius fracture. No evidence of hardware complication. Ulnar styloid fracture.
== END 2022-10-11 11:32 | disposition home or self-care (01) ==
LOC: HO.HOSX 11:31
PROVIDERS: Visit Provider Orthopaedic Surgery
DX: S52.501D Unspecified fracture of the lower end of right radius, subsequent encounter for closed fracture with routine healing (principal)
CPT/HCPCS: 73110

== ENCOUNTER 2022-10-11 12:43 | Outpatient (AMB) | payer BC, SELFPAY ==
--- NOTE | 2022-10-11 12:55 | A.OFFVIS_ITS ---
Intake Intake Visit Reasons: PO R Dis Rad ORIF 08/22/22 AR Intake Note: Padma is a 22 year old right hand dominant female who presents today for a post operative appointment s/p Right Distal Radius ORIF 08/22/22. Patient reports that she is doing well, she has no concerns at the moment. She finds that she has pain mostly at night, she takes tylenol for the pain which helps mildly. Denies numbness and tingling. She has been working on finger ROM. She is currently still out of work Allergies NSAIDS (Non-Steroidal Anti-Inflamma Allergy (Severe, Verified 10/11/22 13:00) HIVES, THROAT SWELLING Penicillins Allergy (Severe, Verified 10/11/22 13:00) HIVES, THROAT SWELLING HPI PO R Dis Rad ORIF 08/22/22 AR HPI Details Pamda is a 22 year old right hand dominant woman who presents S/P right distal radius ORIF, DOS: 08/22/22. She was seen for her 1st postop follow-up on 09/05/2022 with Freda and placed in a short-arm cast. The cast was removed today. She says she is doing well. She continues to have some pain but this is mostly at night. She has been working on ROM exercises She denies any numbness or tingling. 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 She can make a fist and extend all her digits Full active flexion extension and abduction of the thumb without difficulty or discomfort. No tenderness to palpation over the radial styloid or just proximal. She does have some wrist stiffness. ~10 degrees wrist flexion ~5 degrees wrist extension ~45 degrees pronation ~40 degrees supination Sensation is intact Cap refill is brisk Radiographs: 3 views of the right wrist were taken and viewed by me today in clinic. They show a distal radius fracture with satisfactory fracture alignment and position of all implants. There is good evidence of interval bony healing. The radial styloid screw does appear to have penetrated through the radial cortex. Psych Appearance: grossly normal Affect: normal affect Attitude: cooperative Assessment & Plan Assessment & Plan (1) Distal radius fracture, right: Code(s): S52.501A - Unspecified fracture of the lower end of right radius, initial encounter for closed fracture (2) Right wrist pain: Code(s): M25.531 - Pain in right wrist Plan Assessment and plan: 1. Right comminuted intra-articular distal radius fracture, S/P ORIF DOS: 08/22/22 Pre-reduction with significant displacement. And an ulnar styloid fragment DOI: 08/12/22 The cast was removed today. 2. Right acute carpal tunnel syndrome Resolved at this time, no complaints of numbness The patient appears to be doing well post-operatively I educated her about the post-operative course I discussed activity modifications, she is to work on light-medium weight activities for the next two weeks She is to limit or avoid any heavy impact activities or activities prone to falling She will perform gentle ROM exercises at home I ordered OT hand therapy to work on wrist and hand ROM She was given a note for work restricting her to light duty, with a 2lb weight limit and time off to attend OT hand therapy. She will follow up in 3-4 weeks for a ROM check Scribed for Linda Parrish MD by Lokesh Colunga, medical insurance claims specialist, on 10/11/22 at 1:30 PM, EST. Orders: Orders XR wrist RT min 3V Today M25.531 - Pain in right wrist OT Evaluation and Treatment Today S52.501A - Unspecified fracture of the lower end of right radius, initial encounter for closed fracture Coding Level of Care Code Global (48780) Diagnoses Distal radius fracture, right S52.501A Right wrist pain M25.531
== END 2022-10-11 13:40 | disposition home or self-care (01) ==
PROVIDERS: Visit Provider Orthopaedic Surgery
DX: S52.501A Unspecified fracture of the lower end of right radius, initial encounter for closed fracture (principal); M25.531 Pain in right wrist
CPT/HCPCS: 99024

== ENCOUNTER 2022-11-02 12:15 | Outpatient (AMB) | payer BC, SELFPAY ==
--- NOTE | 2022-11-02 12:21 | MHC.OFFVIS ---
Intake Intake Visit Reasons: Postop- R Dis Rad ORIF 08/22/22 AR-F/U Intake Note: Padma is a 22 year old right hand dominant female who presents today for a post operative appointment s/p Right Distal Radius ORIF 08/22/22.? Patient reports that she is doing well, she has no concerns at the moment. Patient reports not having much pain at night. Allergies NSAIDS (Non-Steroidal Anti-Inflamma Allergy (Severe, Verified 10/11/22 13:00) HIVES, THROAT SWELLING Penicillins Allergy (Severe, Verified 10/11/22 13:00) HIVES, THROAT SWELLING HPI Postop- R Dis Rad ORIF 08/22/22 AR-F/U HPI Details Padma is a 22 year old right hand dominant woman who presents S/P right distal radius ORIF, DOS: 08/22/22. She was seen for her 1st postop follow-up on 09/05/2022 with Freda and placed in a short-arm cast, which was removed on 10/11/22. She says she is doing well. Her night pain has improved and she has been working on ROM at home and with OT. She has no concerns today and would like to discuss RTW status. She would like to return to work without restrictions, and feels that she can handle this at this time. She denies any numbness or tingling. 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 She can make a tight fist and extend all her digits Full active flexion extension and abduction of the thumb without difficulty or discomfort. No tenderness to palpation over the radial styloid or just proximal. She has had some improvement in her wrist stiffness since last visit. ~50 degrees wrist flexion ~40 degrees wrist extension ~70 degrees pronation on the right, ~80 degrees pronation on the left No pain with active flexion or extension of the digits No pain with active wrist ROM DRUJ stable Sensation is intact Cap refill is brisk Psych Appearance: grossly normal Affect: normal affect Attitude: cooperative Assessment & Plan Assessment & Plan (1) Distal radius fracture, right: Code(s): S52.501A - Unspecified fracture of the lower end of right radius, initial encounter for closed fracture (2) Right wrist pain: Code(s): M25.531 - Pain in right wrist (3) Stiffness of right wrist joint: Code(s): M25.631 - Stiffness of right wrist, not elsewhere classified Plan Assessment and plan: 1. Right comminuted intra-articular distal radius fracture, S/P ORIF DOS: 08/22/22 Pre-reduction with significant displacement. And an ulnar styloid fragment DOI: 08/12/22 Cast removed: 10/11/22 2. 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 She was given a note for work to return to full duty on 11/03/22. She can follow up prn Scribed for Linda Parrish MD by Lokesh Colunga, diploma medical assistant, on 11/02/22 at 1:00 PM, EST. Coding Level of Care Code Global (98728) Diagnoses Distal radius fracture, right S52.501A Right wrist pain M25.531 Stiffness of right wrist joint M25.631
== END 2022-11-02 13:08 | disposition home or self-care (01) ==
PROVIDERS: Visit Provider Orthopaedic Surgery
DX: S52.501A Unspecified fracture of the lower end of right radius, initial encounter for closed fracture (principal); M25.531 Pain in right wrist; M25.631 Stiffness of right wrist, not elsewhere classified
CPT/HCPCS: 99024

== ENCOUNTER → 2022-11-02 12:15 | Outpatient (BNVA) | payer BC, SELFPAY | PROVIDERS: Visit Provider Orthopaedic Surgery ==

== ENCOUNTER 2022-11-10 11:30 | Outpatient (RCR) | payer BC, SELFPAY ==
--- NOTE | 2022-10-26 14:00 | MHC.OT.EP ---
[address] [phone] Occupational Therapy Plan of Care Patient Name: Padma Mesa Date of Evaluation: 10/26/22 Diagnosis: Right DR fracture, s/p ORIF Pain Location: 3- 6/10 right wrist . Achy Pain Score: 6 Pain Scale Used: Numeric (0 - 10) Aggravating Factors: Sleeping on right side, increased use of right dominant hand Alleviating Factors: Assessment: Pt is a 22 yo female 9 wks sp ORIF for a DR fx due to a fall while roller skating. Her cast was removed 2 wks ago and prior CTS sx resolved. 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, active with gym work outs and yoga Pt now with light use of RUE and out of work for protection of DR fx repair Pt will benefit from OT for ROM and progression of functional use of RUE Frequency and Duration: The patient will be seen 2x wk x 4 wks Short Term Goals: Indep with HEP and pain management Dec c/o pain to 0/10 at rest Inc wrist ext to 55 deg Inc wrist flex to 55 deg Quick DASH < 30 pts Laser Specialist Goals: Dec c/o pain to occasional low with protection techniques as needed Wrist ext to 60 deg Wrist flex to 60 deg Cross Country Coach to 60lb Demo safe simulated pt stand pivot transfer. Quick DASH to < 20 pts Treatment Plan: Therapeutic Exercise Therapeutic Activity Home Exercise Program Patient Education ADL Training Fluidotherapy MHP Soft Tissue Mobilization Kinesiotaping Scar massage Electronically Signed By: Jenn Cramer OT CHT CLT Please Sign and return to therapist. Thank you once again for your referral.
--- NOTE | 2022-11-10 12:08 | MHC.OT.DC ---
[address] [phone] F: [phone] Occupational Therapy Discharge Note Patient Name: Padma Mesa Provider: Linda Parrish Diagnosis: Right DR fracture, s/p ORIF Date of Surgery: 08/22/22 Date of Evaluation: 10/26/22 Date of Discharge: Treatments to Date: 7 Cancellations to Date: No Shows to Date: Discharge Status: Achieved Goals Improved Function Independent with HEP Discharge Summary: Good improvement in pain free ROM to WFL, strength and function to WNL. Pt has returned to work full duty and reports no difficulty with daily activities. Electronically Signed By: Jenn Cramer OT CHT CLT Reviewed/agree with student documentation: Therapist: Please Sign and return to therapist, thank you for your referral.
== END 2022-11-10 12:09 | disposition home or self-care (01) ==
LOC: HO.OT 11:30
PROVIDERS: Visit Provider Orthopaedic Surgery
DX: S52.501D Unspecified fracture of the lower end of right radius, subsequent encounter for closed fracture with routine healing (principal)
CPT/HCPCS: 97035; 97110; 97165

== ENCOUNTER 2023-01-10 09:40 | Outpatient (REF) | payer BC, SELFPAY ==
--- NOTE | ~2023-01-10 | XR_ITS ---
EXAMINATION: XR WRIST, RIGHT CLINICAL INFORMATION: Right wrist pain. COMPARISON: October 11, 2022. TECHNIQUE: PA, lateral, and oblique views of the right wrist. XR/XR wrist RT min 3V FINDINGS/IMPRESSION: There has been no significant radiographic change compared with October 11, 2022. Examination again demonstrates ORIF of the distal right radial metaphysis, with no evidence of hardware fracture or loosening. There is an old avulsion fracture of the right ulnar styloid, unchanged. 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 Joint spaces otherwise appear maintained. No acute fracture or dislocation is seen. Bony mineralization appears preserved.
== END 2023-01-10 09:41 | disposition home or self-care (01) ==
LOC: HO.HOSX 09:40
PROVIDERS: Visit Provider Orthopaedic Surgery
DX: S52.501D Unspecified fracture of the lower end of right radius, subsequent encounter for closed fracture with routine healing (principal); Z86.69 Personal history of other diseases of the nervous system and sense organs
CPT/HCPCS: 73110

== ENCOUNTER 2023-01-10 09:40 | Outpatient (AMB) | payer BC, SELFPAY ==
[2023-01-10 10:01] VITALS: BMI 30.1
--- NOTE | 2023-01-10 10:01 | MHC.OFFVIS ---
Intake Vital Signs 01/10/23 10:01 Height 5 ft 3 in Weight 170 lb BMI 30.1 Intake Visit Reasons: Acute pain in healed ORIF. Pain on outside of wris Intake Note: Padma 22 yr old right hand dominant presents today s/p Right comminuted intra-articular distal radius fracture, S/P ORIF DOS: 08/22/22 and an ulnar styloid fragment. Cast removed 10/11/22. Patient states she has limited ROM in her wrist. Reports she has pain with flextion and extension of wrist and feels like something will pop. Also states has numbness and burning sensation that started 2 months ago in her index, thumb and middle finger. No EMG done. Patient has done P.T in November with some improvement. Allergies NSAIDS (Non-Steroidal Anti-Inflamma Allergy (Severe, Verified 01/10/23 10:06) HIVES, THROAT SWELLING Penicillins Allergy (Severe, Verified 01/10/23 10:06) HIVES, THROAT SWELLING HPI Acute pain in healed ORIF. Pain on outside of wris HPI Details Padma is a 22 year old right hand dominant woman who presents S/P right distal radius ORIF, DOS: 08/22/22. She was seen for her 1st postop follow-up on 09/05/2022 with Freda and placed in a short-arm cast, which was removed on 10/11/22. She had a lot of wrist stiffness which went on to improve with OT hand therapy She returns today because she feels that something will pop with wrist ROM and she has been limiting her wrist ROM because of this. She also complains of ~2 months of new burning in the index, middle, and ring fingers, and says this radiates up the ulnar aspect of her forearm into her elbow. She says this feels like nerve pain but denies any numbness. 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 [employer] Medical History ADD (attention deficit disorder) Anxiety Asthma Endometriosis Migraine headache PONV (postoperative nausea and vomiting) PTSD (post-traumatic stress disorder) Surgical History History of plastic surgery [place] teeth removed Family History Maternal Grandmother Breast CA Social History Alcohol intake: never Patient Tobacco Use Status: Never used Tobacco Current occupational status: employed 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 She can make a tight fist with good strength and no pain, and extend all her digits Full active flexion extension and abduction of the thumb without difficulty or discomfort. No tenderness over the distal radius distal ulna or DRUJ. When testing the DRUJ she did have a slight click, but no obvious instability. She had full pronation and full supination without pain. In comparing the right DRUJ to the left side, she actually has less laxity on the right side than the left. The left side actually has some dorsal prominence in pronation, but is asymptomatic per patient. She denies the recollection of any wrist injury on the left side. Painless wrist flexion extension and prono-supination. ~65 degrees wrist flexion ~50 degrees wrist extension Sensation is intact to all digits. She describes a burning sensation that she gets sometimes in the index middle and ring fingers but normal sensation is there today. She also describes achiness that radiates up the ulnar aspect of her right forearm to her elbow. Normal sensation to the small finger, with no complaint of episodes of small finger numbness and tingling.. Cap refill is brisk Radiographs: 3 views of the right wrist were taken and viewed by me today in clinic. They show evidence of interval bony healing and satisfactory position of all implants Psych Appearance: grossly normal Affect: normal affect Attitude: cooperative Assessment & Plan Assessment & Plan (1) Distal radius fracture, right: Code(s): S52.501A - Unspecified fracture of the lower end of right radius, initial encounter for closed fracture (2) Right wrist pain: Code(s): M25.531 - Pain in right wrist (3) Stiffness of right wrist joint: Code(s): M25.631 - Stiffness of right wrist, not elsewhere classified Plan Assessment and plan: 1.Right comminuted intra-articular distal radius fracture, S/P ORIF With an associated comminuted ulnar styloid fracture. DOS: 08/22/22 Pre-reduction with significant displacement. DOI: 08/12/22 Cast removed: 10/11/22 2. Right acute carpal tunnel syndrome status post carpal tunnel release Date of surgery 08/22/2022 With resolution of numbness and tingling. 3. Right wrist stiffness Resolved with OT hand therapy She does have a slight click when testing her DRUJ, I do not appreciate DRUJ instability. She notices that click during the daytime sometimes but also appreciates that it is not painful. No evidence of ECU subluxation. 4. Right hand burning In the index, middle & ring fingers, and feels like it radiates up the ulnar aspect of her forearm to the medial aspect of her elbow. Intermittent, and began approximately in November. She denies any numbness in her fingertips, including the small and ring fingers. I educated her about these issues. We are going to manage them conservatively for now. I did again educated her about the severity of this injury. This was a comminuted intra-articular fracture of the distal radius and the ulnar styloid. It be best if she avoided heavy or heavy impact type activities with this wrist when considering occupational choices. If anything worsens she knows to contact our clinic. Otherwise we will schedule an appointment to 3-4 months from now to see how she is doing. No radiographs are necessary at that time. Scribed for Linda Parrish MD by Lokesh Colunga, bilingual medical assistant, on 01/10/23 at 10:40 AM, EST. Orders: Orders XR wrist RT min 3V Today M25.531 - Pain in right wrist Coding Level of Care Code Est Pt Level 3 (51494) Diagnoses Distal radius fracture, right S52.501A Right wrist pain M25.531 Stiffness of right wrist joint M25.631
== END 2023-01-10 11:11 | disposition home or self-care (01) ==
PROVIDERS: Visit Provider Orthopaedic Surgery
DX: S52.501A Unspecified fracture of the lower end of right radius, initial encounter for closed fracture (principal); M25.531 Pain in right wrist; M25.631 Stiffness of right wrist, not elsewhere classified
CPT/HCPCS: 99213